=== PATIENT | male | born 1950 | race Caucasian/White ===

== ENCOUNTER 2022-11-15 07:57 | Outpatient (REF) | payer MEDICARE, BC, SELFPAY | END 2022-11-15 07:58 | disposition home or self-care (01) | LOC: HO.BBR 07:57 | PROVIDERS: PCP Internal Medicine; Visit Provider Internal Medicine | DX: D75.1 Secondary polycythemia (principal) | CPT/HCPCS: 85014; 85018; 99195 ==

== ENCOUNTER 2023-01-16 07:46 | Outpatient (REF) | payer MEDICARE, BC, SELFPAY | END 2023-01-16 07:47 | disposition home or self-care (01) | LOC: HO.BBR 07:46 | PROVIDERS: Visit Provider Internal Medicine | DX: D75.1 Secondary polycythemia (principal) | CPT/HCPCS: 85018; 99195 ==

== ENCOUNTER 2023-03-19 07:56 | Outpatient (REF) | payer MEDICARE, BC, SELFPAY | END 2023-03-19 07:57 | disposition home or self-care (01) | LOC: HO.BBR 07:56 | PROVIDERS: Visit Provider Internal Medicine | DX: D75.1 Secondary polycythemia (principal) | CPT/HCPCS: 85018; 99195 ==

== ENCOUNTER 2023-05-20 08:02 | Outpatient (REF) | payer MEDICARE, BC, SELFPAY | END 2023-05-20 08:03 | disposition home or self-care (01) | LOC: HO.BBR 08:02 | PROVIDERS: PCP Internal Medicine; Visit Provider Internal Medicine | DX: D75.1 Secondary polycythemia (principal) | CPT/HCPCS: 85014; 85018; 99195 ==

== ENCOUNTER 2023-07-22 08:06 | Outpatient (REF) | payer MEDICARE, BC, SELFPAY | END 2023-07-22 08:07 | disposition home or self-care (01) | LOC: HO.BBR 08:06 | PROVIDERS: PCP Internal Medicine; Visit Provider Internal Medicine | DX: D75.1 Secondary polycythemia (principal) | CPT/HCPCS: 85018; 99195 ==

== ENCOUNTER 2023-09-23 08:09 | Outpatient (REF) | payer MEDICARE, BC, SELFPAY | END 2023-09-23 08:10 | disposition home or self-care (01) | LOC: HO.BBR 08:09 | PROVIDERS: PCP Internal Medicine; Visit Provider Internal Medicine | DX: D75.1 Secondary polycythemia (principal) | CPT/HCPCS: 85018; 99195 ==

== ENCOUNTER 2023-11-25 08:49 | Outpatient (REF) | payer MEDICARE, BC, SELFPAY | END 2023-11-25 08:50 | disposition home or self-care (01) | LOC: HO.BBR 08:49 | PROVIDERS: PCP Internal Medicine; Visit Provider Internal Medicine | DX: D45 Polycythemia vera (principal) | CPT/HCPCS: 85014; 85018; 99195 ==

== ENCOUNTER 2024-02-25 08:01 | Outpatient (REF) | payer MEDICARE, BC, SELFPAY | END 2024-02-25 08:02 | disposition home or self-care (01) | LOC: HO.BBR 08:01 | PROVIDERS: PCP Internal Medicine; Visit Provider Internal Medicine | DX: D45 Polycythemia vera (principal) | CPT/HCPCS: 85018; 99195 ==

== ENCOUNTER 2024-05-27 08:10 | Outpatient (REF) | payer MEDICARE, BC, SELFPAY | END 2024-05-27 08:11 | disposition home or self-care (01) | LOC: HO.BBR 08:10 | PROVIDERS: PCP Internal Medicine; Visit Provider Internal Medicine | DX: D45 Polycythemia vera (principal) | CPT/HCPCS: 85014; 85018; 99195 ==

== ENCOUNTER 2024-09-03 08:06 | Outpatient (REF) | payer MEDICARE, BC, SELFPAY ==
--- OUTSIDE RECORDS SUMMARY | 2024-09-03 08:12 | XMS_ITS | Encounter Summary ---
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) Procedures US Head Neck Soft Tissue Madelyn Bledsoe PA [address] [place] [address] Phone: tel: fax: [facility] Referral ID Status Reason Start Date Expiration Date V isits Requested Visits Authorized [id number] Authorized 08/11/2024 08/11/2025 1 1 Reason for Visit * Reason Comments Diabetes Encounter Details Date Type Department Care Team (Late st Contact Info) Description 08/11/2024 9:45 AM EST Office Visit Endocrinology - [address] [phone] Maedlyn Bledsoe PA [address] [place] [address] 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) (Primary Dx); Essential hypertension, benign; Morbid obesity (CMS/HCC); Microalbuminuria; Thyroid nodule Social History Tobacco Use Types Packs/Day Years Used Date Smoking Tobacco: Former Cigarettes 1 38.7 0 07/15/1969 - 04/12/2008 Smokeless Tobacco: Never Tobacco Cessation:Counseling Given: Not Answered Alcohol Use Standard Drinks/Week Comments Yes 0 (1 standard drink = 0.6 oz pur e alcohol) Sex and Gender Information Value Date Recorded Sex Assigned at Not on file Legal Sex Male 6:24 PM EST Gender Identity Not on file Sexual Orientation Not on file documented as of this encounter Last Filed Vital Signs Vital Sign Reading Time Taken Comments Blood Pressure 112/64 08/11/2024 9:48 AM EST C Pulse 68 08/11/2024 9:48 AM EST Temperature 36.2 ??C (97.2 ??F) 08/11/2024 9:48 AM ES T Respiratory Rate - - Oxygen Saturation 93% 08/11/2024 9:48 AM EST Inhaled Oxygen Concentration - - Weight 119 kg (262 lb 6.4 oz) 08/11/2024 9:48 AM EST Height 180.3 cm (5' 11 ) 08/11/2024 9:48 AM EST Body Mass Index 36.6 08/11/2024 9:48 AM EST documented in this encounter Progress Notes * Regina Pennington MA - 08/11/2024 9:45 AM EST BS - 117 - Non Fasting * SABINO Dawkins - 08/11/2024 9:45 AM EST CHIEF COMPLAINT: Diabetes IDENTIFIER: Elton Carlisle is a 74 y.o. old male. HPI: Patient presents for follow-up on diabetes and thyroid disease. Past medical history of type 2 diabetes, thyroid nodules, peripheral artery disease, PTSD, obstructive of sleep apnea, morbid obesity, fatty liver disease, hypertension, coronary artery disease, congestive heart failure, carotic stenosis, cardiomyopathy, and anxiety. Thyroid nodules: Patient with history of multinodular goiter. Biopsy was done of the left nodules Left upper pole biopsy was nondiagnostic Left midpole biopsy was atypia of undetermined significance. Molecular testing done for that noduleand it showed low risk of malignancy. Only had follow-up ultrasound. See below for report. Nodules are stable. He did have a new nodule small on the right mid lobe. Continuing surveillance recommended No family history of thyroid cancer and he denies excessive exposure to radiation. No issues swallowing, changes in voice, chronic cough, or thyroid enlargement Diabetes: Lab Results Component Value Date HGBA1C 6.0 02/06/2024 Using robbie CGM Average glucose 139 GMI 6.6 Time in range 93% Time above 180 is 7% Diabetes medication: Jardiance 10 mg Humalog 18 units 3 times a day Actos 30 mg Ozempic 1 mg Metformin at 1000 mg twice a day Basaglar 50 units twice a day He does have an outside buying agent. Up-to-date with foot exam. Follows up with Dr. Cotton He does follow-up with vascular specialist. Dr. Malena Tian. Of note patient did have right leg surgery. Had angioplasty. Print Line Operator Dr. Purdy. Surgeon Dr. Frias. Up-to-date with eye exam. States he goes to [facility] Diabetes complicated by microalbuminuria. He is on VI inhibitor Blood sugar in the office 117 Hyperlipidemia: For cholesterol control takes Lipitor 40. LDL normal. Hypertension: Blood pressure 112/64 For blood pressure control on Lasix 40 mg, Entresto 49/51 mg twice a day, spironolactone 50 mg, andcarvedilol 25 mg twice a day. Obesity: Wt Readings from Last 3 Encounters: 08/11/24 119 kg (262 lb 6.4 oz) 07/31/24 118 kg (261 lb) 04/30/24 120 kg (265 lb) ROS: GENERAL: No malaise, significant weight loss or fever HEENT: No changes in hearing or vision, nose bleeds or other nasal problems RESPIRATORY: No cough, wheezing or shortness of breath CARDIOVASCULAR: No chest pain, leg swelling or palpitations GI: No abdominal discomfort, blood in stools or black stools ENDOCRINE: See HPI MUSCULOSKELETAL: No joint pain or swelling, back pain, or muscle pain. NEURO: No persistent headache, syncope, seizures, weakness or numbness PAST MEDICAL HISTORY: Patient Active Problem List Diagnosis Date Noted Abnormal thyroid biopsy 02/11/2023 Polycythemia vera (CMS/HCC) 11/07/2022 Carotid disease, bilateral ([facility]/HCC) 04/04/2018 CHB (complete heart block) ([facility]) 04/04/2018 Aortic valve replaced 03/06/2018 S/P biventricular cardiac pacemaker procedure 03/06/2018 Carotid stenosis, asymptomatic, bilateral 01/09/2018 Blepharitis of upper and lower eyelids of both eyes 09/17/2017 Paving stone degeneration of both retinas 09/17/2017 Coronary artery disease 04/25/2016 Calculus of gallbladder without cholecystitis without obstruction 11/20/2015 Fatty liver 11/20/2015 Liver nodule 11/09/2015 Lung nodules 11/09/2015 Thyroid nodule 11/09/2015 Microalbuminuria 10/11/2014 Type 2 diabetes mellitus with microalbuminuria ([facility]) 10/11/2014 Obstructive sleep apnea 08/11/2013 Aortic root dilation ([facility]) 03/04/2013 PTSD (post-traumatic stress disorder) 12/03/2012 Cardiomyopathy ([facility]) 01/23/2011 Adjustment disorder with mixed anxiety and depressed mood 01/05/2011 ARMD (age related macular degeneration) 11/11/2008 Chorioretinal scar 11/11/2008 Nuclear sclerosis 11/11/2008 Pure hyperglyceridemia 02/28/2007 Congestive heart failure ([facility]) 03/07/2006 Anxiety state 01/11/2006 Edema 01/11/2006 Allergic rhinitis 11/07/2005 Cramp of limb 11/07/2005 Essential hypertension, benign 11/07/2005 Morbid obesity ([facility]) 11/07/2005 PVD (peripheral vascular disease) ([facility]) 11/07/2005 SOCIAL HISTORY: Social History Tobacco Use Smoking status: Former Current packs/day: 0.00 Average packs/day: 1 pack/day for 38.7 years (38.7 ttl pk-yrs) Types: Cigarettes Start date: 07/15/1969 Quit date: 04/12/2008 Years since quittin.3 Smokeless tobacco: Never Substance Use Topics Alcohol use: Yes FAMILY HISTORY: Family Status Relation Name Status Neg Hx (Not Specified) Father Mother Brother Alive Sister Alive No partnership data on file Family History Problem Relation Name Age of Onset Cancer Neg Hx Anemia Neg Hx Hyperlipidemia Father Coronary artery disease Father Hypertension Mother Stroke Mother Diabetes Brother Hypertension Sister Blindness Neg Hx Cataracts Neg Hx Glaucoma Neg Hx Macular degeneration Neg Hx Strabismus Neg Hx ACTIVE MEDICATIONS: Outpatient Medications Marked as Taking for the 08/11/24 encounter (Office Visit) with SABINO Dawkins Medication Sig Dispense Refill apixaban (ELIQUIS) 5 mg tablet Take 1 tablet (5 mg total) by mouth 2 (two) times a day. 180 tablet 1 atorvastatin (LIPITOR) 40 mg tablet Take 1 tablet (40 mg total) by mouth 1 (one) time each day. blood-glucose sensor (FreeStyle Robbie 3 Sensor) device USE 1 SENSOR EVERY 14 DAYS 2 each 11 carvediloL (COREG) 25 mg tablet TAKE 1 TABLET BY MOUTH TWICE DAILY WITH MEALS 180 tablet 1 clonazePAM (KlonoPIN) 0.5 mg tablet Take 1 tablet (0.5 mg total) by mouth. DULoxetine (CYMBALTA) [address] capsule Take 1 capsule (60 mg total) by mouth daily. empagliflozin (Jardiance) 10 mg tablet Take 1 tablet (10 mg total) by mouth 1 (one) time each day. flash glucose sensor (FreeStyle Robbie 2 Sensor) kit Change sensor every 14 days 2 each 11 furosemide (LASIX) 40 mg tablet TAKE 1 TABLET BY MOUTH DAILY 90 tablet 1 gabapentin (NEURONTIN) 100 mg capsule Take 1 capsule (100 mg total) by mouth 3 (three) times a day.270 capsule 0 insulin glargine,hum.rec.anlog (Basaglar KwikPen U-100 Insulin) 100 unit/mL (3 mL) injection pen Inject 50 Units under the skin at bedtime. insulin lispro 100 unit/mL injection Inject 18 Units under the skin 3 (three) times a day before meals. metFORMIN (GLUCOPHAGE) 500 mg tablet Take 2 tablets (1,000 mg total) by mouth 2 (two) times a day with meals. pioglitazone (ACTOS) 30 mg tablet TAKE 1 TABLET BY MOUTH DAILY 90 tablet 1 sacubitriL-valsartan (ENTRESTO) 49-51 mg per tablet Take 1 tablet by mouth 2 (two) times a day. 180each 2 semaglutide (Ozempic) 1 mg/dose (4 mg/3 mL) injection pen Inject 1 mg under the skin 1 (one) time per week. spironolactone (ALDACTONE) 50 mg tablet TAKE 1 TABLET BY MOUTH DAILY 90 tablet 1 ALLERGIES: Banana PHYSICAL EXAM: Blood pressure 112/64, pulse 68, temperature 36.2 ??C (97.2 ??F), temperature source Temporal, height 1.803 m (71 ), weight 119 kg (262 lb 6.4 oz), SpO2 93%. Body mass index is 36.6 kg/m??. BMI is greater than 25.0 (above the normal range) - see Plan APPEARANCE: Alert and in no acute distress HEART: RRR with normal S1 and S2, no murmurs, no gallops, NECK: no thyroid enlargement, nodules or masses felt. LUNG: clear to auscultation NEURO: Awake, alert and oriented x 3 LABS: Lab Results Component Value Date HGBA1C 6.0 02/06/2024 CHOL 103 12/16/2023 LDL 42 12/16/2023 HDL 40 12/16/2023 TRIG 108 12/16/2023 Lab Results Component Value Date GLUCOSE 149 (H) 07/31/2024 No results found for: TSH IMAGING: Narrative & Impression History: Thyroid nodules. Follow-up. Thyroid ultrasound: Compared to 12/26/2023. The thyroid remains diffusely somewhat heterogeneous. The left lobe of thyroid remains substantially enlarged measuring 7.4 x 3.7 x 4.7 cm. The right lobe remains at the upper limit of normal measuring 4.7 x 1.7 x 2.3 cm. There is a hypoechoic nodule in the left aspect of the isthmus measuring 9 x 9 x 9 mm, not significantly changed. There is a poorly defined right mid lobe nodule measuring 12 x 11 x 10 mm not seen previously. A right lower pole nodule seen previously is no longer visualized. A left upper pole predominantly cystic nodule measures 12x 11 x 9 mm, not significantly changed. There is a dominant nodule at the left mid to lower pole with cystic and solid components measuring 6.0 x 3.7 x 4.6 cm. Previous dimensions were 5.5 x 3.6 x 4.9 cm. This does not represent a significant interval change. No additional nodules or masses are demonstrated. IMPRESSION: Previously identified nodules are stable. New small right mid lobe nodule. Continued sonographic follow-up is recommended. -------- FINAL REPORT -------- Dictated By: Jersey Reyes Dictated Date: 06/25/2024 11:27 ET Assigned Physician: Jersey Reyes Reviewed and Electronically Signed By: Jersey Reyes Signed Date: 06/25/2024 11:35 ET Workstation ID: [id number] Transcribed By: Self Edit Transcribed Date: 06/25/2024 11:27 ET IMPRESSION: 1. 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 Essential hypertension, benign 3. Morbid obesity (CMS/HCC) 4. Microalbuminuria 5. Thyroid nodule PLAN: Patient presents to the office for diabetes follow-up 1. Diabetes: A1c at goal. CGM data reviewed. Blood sugars doing well No hypoglycemia Labs ordered Continue with current regimen Follow-up in 6 months 2. Hypertension: Blood pressure at goal. Continue with blood pressure lowering medication 3. Morbid obesity: Continue to focus on lower intake of foods high in carbs and sugar 4. Microalbuminuria: Labs ordered 5. Thyroid nodule: Most recent ultrasound reviewed with the patient. Ultrasound for a year ordered All questions and concerns were addressed. Patient understands and agrees with this treatment plan.Patient was reminded to call or return to the office if any new or existing problems arise This document was made using voice recognition software. 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) (Primary) - Hemoglobin A1c; Future - Lipid panel with reflex to direct LDL; Future - Microalbumin creatinine urine ratio; Future - US Head Neck Soft Tissue; Future Essential hypertension, benign Morbid obesity (CMS/HCC) Microalbuminuria Thyroid nodule SABINO Dawkins on 08/11/2024 at 10:32 AM EST documented in this encounter Plan of Treatment Upcoming Encounters Date Type Department Care Team (Late st Contact Info) Description 09/30/2024 10:30 AM EDT Ancillary Procedure [facility] [address] [facility] [address] [place] [address] 10/14/2024 9:00 AM EDT Office Visit Internal Medicine - [address] [phone] Farooq Alvarado MD [address] [place] [phone] 02/09/2025 10:00 AM EDT Office Visit Endocrinology - [address] [phone] Madelyn Bledsoe PA [address] [place] [address] 03/16/2025 9:30 AM EDT Ancillary Procedure [facility] - [facility] [address] [facility] [address] [place] [address] 06/16/2025 10:45 AM EST Office Visit [facility] Hematology Oncology [address] [place] [phone] Caren Judge MD [address] [place] [address] Scheduled Orders Name Type Priority Associated Diagnoses Orde r Schedule US Head Neck Soft Tissue Imaging Routine Type 2 diabetes mellitus with microalbuminuria ([facility]/HCC) Expected: 07/13/2025, Expires: 08/03/2026 documented as of this encounter Results * (ABNORMAL) Microalbumin creatinine urine ratio (08/11/2024 10:53 AM EST) Creatinine, Urine 25.0 mg/dL LAB CHEMISTRY METHOD 08/11/2024 1:22 PM EST [facility] Microalb, Ur 323.0(H) 0.0 - 29.0 mg/L LAB CHEMISTRY METHOD 08/11/2024 1:22 PM EST [facility] Microalb/Crea t Ratio 1,292(H) <30 mg/g creat LAB CHEMISTRY METHOD 08/11/2024 1:22 PM EST [facility] Urine Urine specimen from urethra / Unknown Non-blood Collection / Unknown 08/11/2024 10:53 AM EST 08/11/2024 10:53 AM EST us Madelyn GALLO LAB URINE ORDERABLES Final Result [facility] [address] [place] [address], [place] [phone] * (ABNORMAL) Lipid panel with reflex to direct LDL (08/11/2024 10:53 AM EST) Cholesterol 95 0 - 200 mg/dL LAB CHEMISTRY METHOD 08/11/2024 4:14 PM [facility] Triglycerides 157(H) 0 - 150 mg/dL LAB CHEMISTRY METHOD 08/11/2024 4:14 PM [facility] HDL 36(L) >=40 mg/dL LAB CHEMISTRY METHOD 08/11/2024 4:14 PM [facility] LDL Calculated 28 0 - 100 mg/dL LAB CHEMISTRY METHOD 08/11/2024 4:14 PM [facility] VLDL Cholesterol Lenny 31.4 mg/dL LAB CHEMISTRY METHOD 08/11/2024 4:14 PM [facility] Non HDL Chol. (LDL+VLDL) 59 <145 mg/dL LAB CHEMISTRY METHOD 08/11/2024 4:14 PM [facility] Chol/HDL Ratio 2.6 0.0 - 4.4 LAB CHEMISTRY METHOD 08/11/2024 4:14 PM [facility] Blood Venous blood specimen / Unknown Venipuncture / Unknown 08/11/2024 10:53 AM EST 08/11/2024 10:53 AM EST us Madelyn GALLO LAB BLOOD ORDERABLES Final Result [facility] [address] [place] [address], * Hemoglobin A1c (08/11/2024 10:53 AM EST) Hemoglobin A1C 6.2 <6.5 % LAB CHEMISTRY METHOD 08/11/2024 1:59 PM [facility] Mean Bld Glu Estim. 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 Duplicate order 12/16/2023 08/11/2024 pioglitazone (ACTOS) 30 mg tablet Take 1 tablet (30 mg total) by mouth 1 (one) time each day. Duplicate order 12/17/2018 08/11/2024 documented as of this encounter Care Teams Director Global Strategic Publisher Sales Relationship Specialty Start Date End Date Farooq Alvarado MD [address] [place] [id number] PCP - General Internal Medicine 04/11/15 documented as of this encounter
--- OUTSIDE RECORDS SUMMARY | 2024-09-03 08:12 | XMS_ITS | Continuity of Care Document ---
Author Organization [facility] ter Address [address] [place] [id number]- Care Team Providers Care Handkerchief Presser Name Role Phone Christiano LUIS, Farooq Cortes Primary Care Physician Encounter [facility] Date(s): 08/25/24 - 08/28/[address] [address] Discharge Disposition: A-D/C Home Attending Physician: Miguel Chun MD Admitting Physician: Larry Eric MD Referring Physician: Not on Staff, Referring MD Encounter Type: Disch IP Allergies, Adverse Reactions, Alerts No Known Medication Allergies Substance Criticality Severity Reaction Reaction Severity Status Bananas Hives Active Immunizations Given and Recorded Vaccine Date Status Refusal Reason SARS-CoV-2 (COVID-19) Ad26 vaccine 07/04/21 Record ed SARS-CoV-2 (COVID-19) Ad26 vaccine 10/21/20 Record ed influenza virus vaccine, inactivated 05/22/19 Curtis rded tetanus-diphtheria toxoids (Td) 08/12/18 Recorded pneumococcal 13-valent vaccine 03/12/17 Recorded Zoster Vaccine Live 12/27/15 Recorded pneumococcal 23-valent vaccine 01/05/14 Recorded tetanus/diphtheria/pertussis, acel(Tdap) 12/25/07 Recorded Medications Albuterol (Eqv-ProAir HFA) 90 mcg/inh inhalation aerosol 1 inhalation = 90 mcg, Inhalation, Every 4 hours, PRN as needed for shortness of breath or wheezing, # 8.5 Gm, 0 Refills, Maintenance, 2/14/25 9:48:00 AM EST, Aerosol, [facility] #[id number], Partial fill upon patient request if the prescription is for a schedule II opioid drug., 1 inhalation Inhalation Every 4 hours,x30 days,PRN:as needed for shortness of breath or wheezing, 180, cm, 08/27/24 4:12:00 EST, Height, 117, kg, 08/25/24 19:09:00 EST, Dry Weight Start Date: 08/28/24 Stop Date: 09/27/24 Status: Ordered Quantity: 8.5 Unit: g Repeat number: 1 apixaban 5 mg oral tablet 1 tablet = 5 mg, By Mouth, 2 times a day, # 60 tablet, 0 Refills, Maintenance, 08/28/24 9:45:00 AM EST, Tablet, [facility] #[id number], Partial fill upon patient request if the prescription is for a schedule II opioid drug., 180, cm, 08/27/24 4:12:00 EST, Height, 117, kg, 08/25/24 19:09:00 EST,Dry Weight Start Date: 08/28/24 Stop Date: 09/27/24 Status: Ordered Quantity: 60.0 Unit: tablet Repeat number: 1 aspirin 81 mg oral delayed release tablet 81 mg, 1, tablet, By Mouth, Daily, # 30 tablet, Refills 0, Tot. Refills 0, Maintenance, 01/03/24 9:18:00 AM EDT, Route to Pharmacy Electronically, [facility]/pharmacy #[id number], Partial fill upon patient requestif the prescription is for a schedule II opioid drug., 180.34, cm, 01/03/24 7:38:00 EDT, Height, 120.2, kg, 01/02/24 9:20:00 EDT, Dry Weight Start Date: 01/03/24 Status: Ordered Quantity: 30.0 Unit: tablet Repeat number: 1 atorvastatin 40 mg oral tablet 1 tablet = 40 mg, By Mouth, Daily at bedtime, # 30 tablet, 0 Refills, Maintenance, Tablet, Print Requisition Start Date: 02/22/18 Status: Ordered Quantity: 30.0 Unit: tablet Repeat number: 1 carvedilol 25 mg oral tablet 25 mg, Tablet, By Mouth, 08/28/24 9:00:00 AM EST Start Date: 08/28/24 Stop Date: 08/28/24 Status: Completed Repeat number: 1 carvedilol 25 mg oral tablet 25 mg, 1, tablet, By Mouth, 2 times a day, 180 each, 0 Refill(s), TAKE 1 TABLET BY MOUTH TWICE DAILY WITH MEALS, Refills 0, 07/13/24 1:51:00 PM EST, Partial fill upon patient request if the prescription is for a schedule II opioid drug. Start Date: 07/13/24 Status: Ordered Repeat number: 1 cefpodoxime 200 mg oral tablet 1 tablet = 200 mg, By Mouth, Every 12 hours, for 3 days, # 6 tablet, 0 Refills, Acute 08/31/24 9:53:00 AM EST, 08/28/24 9:53:00 AM EST, Tablet, [facility] #[id number], Partial fill upon patient request if the prescription is for a schedule II opioid drug., 180, cm, 08/27/24 4:12:00 EST, Height, 117, kg, 08/25/24 19:09:00 EST, Dry Weight Start Date: 08/28/24 Stop Date: 08/31/24 Status: Ordered Quantity: 6.0 Unit: tablet Repeat number: 1 clonazePAM 0.5 mg oral tablet 1 tablet = 0.5 mg, By Mouth, 3 times a day, PRN Anxiety, 0.25 mg during the day and 0.5 mg at bedtime, (total 0.5 tid), 0 Refills, Maintenance, 06/15/20 6:59:00 PM EST, Tablet, Partial fill upon patient request if the prescription is for a schedule II opioid drug. Start Date: 06/15/20 Status: Ordered Repeat number: 1 Cymbalta 30 mg oral enteric coated capsule 1 capsule = 30 mg, By Mouth, Daily in AM, do not crush or chew, 0 Refills, Maintenance, 12/04/21 7:56:00 PM EDT, CR Capsule, Partial fill upon patient request if the prescription is for a schedule II opioid drug. Start Date: 12/04/21 Status: Ordered Repeat number: 1 doxycycline hyclate 100 mg oral capsule = 100 mg, By Mouth, Every 12 hours, for 3 days, # 6 capsule, 0 Refills, Acute 08/31/24 9:46:00 AM EST, 08/28/24 9:46:00 AM EST, Capsule, [facility] #[id number], Partial fill upon patient request if the prescription is for a schedule II opioid drug., 180, cm, 08/27/24 4:12:00 EST, Height, 117, kg, 08/25/24 19:09:00 EST, Dry Weight Start Date: 08/28/24 Stop Date: 08/31/24 Status: Ordered Quantity: 6.0 Unit: capsule Repeat number: 1 Entresto 49 mg-51 mg oral tablet 1 tablet, By Mouth, 2 times a day, # 60 tablet, 0 Refills, Maintenance, 08/26/19 9:32:00 AM EST, Tablet Start Date: 08/26/19 Status: Ordered Quantity: 60.0 Unit: tablet Repeat number: 1 furosemide 40 mg oral tablet 40 mg, 1, tablet, By Mouth, Daily in AM, # 30 tablet, Refills 0, Tot. Refills 0, Maintenance, 08/28/24 9:45:00 AM EST, Route to Pharmacy Electronically, [facility] #[id number], Partial fill upon patient request if the prescription is for a schedule II opioid drug., 180, cm, 08/27/24 4:12:00 EST, Height, 117, kg, 08/25/24 19:09:00 EST, Dry Weight Start Date: 08/28/24 Status: Ordered Quantity: 30.0 Unit: tablet Repeat number: 1 gabapentin 100 mg oral capsule 100 mg, Capsule, By Mouth, 08/28/24 9:00:00 AM EST Start Date: 08/28/24 Stop Date: 08/28/24 Status: Completed Repeat number: 1 gabapentin 100 mg oral capsule 100 mg, 1, capsule, By Mouth, 3 times a day, 270 each, 0 Refill(s), Refills 0, 07/13/24 1:51:00 PM EST, Partial fill upon patient request if the prescription is for a schedule II opioid drug. Start Date: 07/13/24 Status: Ordered Repeat number: 1 Insulin Lispro 2-10 units, Subcutaneous Injection, 3 times a day before meals, sliding scale [id number]: 2 units, 200-249; 4 unints, 250-299; 6 units, 300-349: 8 units, 350- 399: 10 units, call MD if more than 400.,0 Refills, Maintenance, 08/28/24 9:48:00 AM EST, Injection, Partial fill upon patient request if theprescription is for a schedule II opioid drug. Start Date: 08/28/24 Status: Ordered Repeat number: 1 Jardiance 10 mg oral tablet 1 tablet = 10 mg, By Mouth, Daily in AM, 0 Refills, Maintenance, 01/10/21 11:24:00 AM EDT, Partial fill upon patient request if the prescription is for a schedule II opioid drug. Start Date: 01/10/21 Status: Ordered Repeat number: 1 Lantus Inj = 100 units, Subcutaneous Injection, Daily at bedtime, 0 Refills, Maintenance, 04/04/17 9:21:43 AM EDT Start Date: 04/04/17 Status: Ordered Repeat number: 1 metFORMIN 500 mg oral tablet, extended release 2 tablet = 1,000 mg, By Mouth, 2 times a day, 0 Refills, Maintenance, 09/16/18 8:52:24 AM EST Start Date: 09/16/18 Status: Ordered Repeat number: 1 Ozempic (1 mg dose) 4 mg/3 mL subcutaneous solution = 1 mg, Subcutaneous Injection, Every week, 3 mL, 0 Refill(s), INJECT 1MG SUBCUTANEOUSLY EVERY 7 DAYS, 0 Refills, 07/13/24 1:51:00 PM EST, Partial fill upon patient request if the prescription is fora schedule II opioid drug. Start Date: 07/13/24 Status: Ordered Repeat number: 1 pioglitazone 30 mg oral tablet 1 tablet = 30 mg, By Mouth, Daily at bedtime, # 30 tablet, 0 Refills, Maintenance, 12/17/18 3:12:10 PM EDT, Tablet Start Date: 12/17/18 Status: Ordered Quantity: 30.0 Unit: tablet Repeat number: 1 spironolactone 50 mg oral tablet 1 tablet = 50 mg, By Mouth, Daily in AM, # 180 tablet, 0 Refills, Maintenance, 05/28/13 4:35:44 PM EST, Tablet Start Date: 05/28/13 Status: Ordered Quantity: 180.0 Unit: tablet Repeat number: 1 Trilipix 135 mg oral delayed release capsule 1 capsule = 135 mg, By Mouth, Daily in AM, # 30 capsule, 0 Refills, Maintenance, 05/28/13 4:36:27 PM EST, EC Capsule Start Date: 05/28/13 Status: Ordered Quantity: 30.0 Unit: capsule Repeat number: 1 Tylenol 325 mg oral tablet 650 mg, By Mouth, Every 6 hours, PRN, Refills 0, Maintenance, Pain , Moderate, 01/03/24 9:07:00 AM EDT, Partial fill upon patient request if the prescription is for a schedule II opioid drug. Start Date: 01/03/24 Status: Ordered Repeat number: 1 Problem List Condition Confirmation Course Effective Dates Status H ealth Status Informant Anxiety Confirmed Active (aortic stenosis) Confirmed Active Asymptomatic carotid artery stenosis Confirmed Active Obesity (BMI 36 as of 01/12/2019) Confirmed Active Biventricular Medtronic Solara Quad MINE EQUIPMENT DESIGN ENGINEER-P MRI SureScan model [id number] Confirmed 02/21/18 Active Cardiomyopathy Confirmed Active Carotid artery stenosis Confirmed Active CHF (congestive heart failure) Confirmed Active CAD (coronary artery disease) Confirmed Active Former smoker, 2 ppd X30 years, quit 2003 Confirmed Active History of complete heart block Confirmed Active Heart murmur Confirmed Active S/P AVR Confirmed Active Hx of CABG Confirmed Active Hyperlipidemia Confirmed Active HTN (hypertension) Confirmed Active Moderate Kyphoscoliosis Confirmed Active Neuropathy Confirmed Active YAKELIN (obstructive sleep apnea) Confirmed Active Osteomyelitis Confirmed Active PAD (peripheral artery disease) Confirmed Active PVD (peripheral vascular disease) Confirmed Active PTSD (post-traumatic stress disorder) Confirmed Active Severe obesity (BMI 35.0-39.9) with comorbidity Confirmed Active DM2 (diabetes mellitus, type 2), insulin Confirmed Active Noncompliance with CPAP treatment Confirmed Active Results Radiology Reports * Exam Date Time Procedure Performing Provider Status 08/25/24 7:50 AM Chest Portable Shimon , Aliyah; Auth (V erified) Notes: (Chest Portable) Reason For Exam: Shortness of Breath RESULT: Chest Portable AP upright portable chest dated August 25, 2024 at 0741 hours. Comparison films are from September 24, 2019. HISTORY: Shortness of breath. FINDINGS: The cardiac silhouette is increased in size. A pacemaker/AICD is noted on the left. Thereare at least 4 wires extending to overlie the heart. A combination of reticulonodular infiltrates right greater than left is demonstrated. There is elevation of left hemidiaphragm. This is stable. The patient is status post median sternotomy. Degenerative changes are noted in the heart. IMPRESSION: Extensive changes bilaterally most consistent with multifocal pneumonia. Examination [id number]. Thank you for allowing me to participate in the care of this patient. WSN: [id number] Ordering Physician: Jabari Mike Dictated By: Samuel Thompson MD Dictated Date/Time: 08/25/24 8:28 am Reviewed By: Samuel Thompson MD Signed By: Samuel Thompson MD Signed Date/Time: 08/25/24 8:28 am Transcribed By: GIBSON Transcribed Date/Time: 08/25/24 8:28 am Vital Signs Most recent to oldest [Reference Range]: 1 2 3 Height 180 cm (08/27/24 4:12 AM) 180 cm (08/27/24 2:00 AM) 180 cm (08/26/24 7:58 PM) Weight 117 kg (08/25/24 5:40 PM) 120.5 kg (08/25/24 5:38 PM) 117 kg (08/25/24 3:26 PM) Oxygen Saturation [94-100 %] 93 % *L* (08/28/24 9:00 AM) 96 % (08/28/24 12:00 AM) 98 % (08/27/24 7:56 PM) Pulse Rate [55-90 bpm] 78 bpm (08/28/24 9:43 AM) 78 bpm (08/28/24 9:00 AM) 80 bpm (08/28/24 12:00 AM) Body Mass Index [18.5-24.99 kg/m2] 36.11 kg/m2 *>HHI* (08/25/24 5:40 PM) 36.11 kg/m2 *>HHI* (08/25/24 3:26 PM) 36.11 kg/m2 *>HHI* (08/25/24 12:54 PM) Blood Pressure [90-138/55-84 mm Hg] 123/53mm Hg (08/28/24 9:43 AM) 123/53mm Hg (08/28/24 9:00 AM) 132/56mm Hg (08/28/24 12:00 AM) Respiratory Rate [16-30 br/min] 20 br/min (08/28/24 9:43 AM) 20 br/min (08/28/24 9:00 AM) 18 br/min (08/28/24 12:00 AM) Temperature [96.8-100.4 DegF] 98.0 DegF (08/28/24 9:00 AM) 98.2 DegF (08/28/24 12:00 AM) 98.6 DegF (08/27/24 7:56 PM) Liters per Minute 6 L/min (08/26/24 8:00 AM) 6 L/min (08/26/24 6:00 AM) 6 L/min (08/26/24 4:00 AM) Mode of Delivery (Oxygen) Room air (08/28/24 12:00 AM) Room air (08/27/24 7:56 PM) Room air (08/27/24 1:00 PM) Blood pressure sites Arm, left (08/28/24 9:00 AM) Arm, left (08/28/24 12:00 AM) Arm, left (08/27/24 7:56 PM) Temperature Route Oral (08/28/24 9:00 AM) Oral (08/28/24 12:00 AM) Oral (08/27/24 7:56 PM) Dry Weight 117 kg (08/25/24 5:40 PM) 117 kg (08/25/24 3:26 PM) 117 kg (08/25/24 12:54 PM) Weight Obtained Via Bed scale (08/25/24 5:38 PM) Patient/family stated (08/25/24 7:17 AM) Dry Weight Obtained Via Patient/family s tated (08/25/24 7:17 AM) Social History Social History Type Response Smoking Status Former smoker; Tobac co user in household: No; Other: 2ppd x 30y; quit 2004; 1 entered on: 03/07/16 Sex Sex Representation Male (finding) 1quit 8 yrs ago Admission evaluation note * Reilly GALLO, Parminder Monique: PERFORM Event Display: Admission Note Authored Date: [id number] Patient: ??MIMI SPIVEY ? Age:??74 Years?Sex:??Male?:??1950?? History of Present Illness 74-year-old male with history of CAD s/p CABG in 2019, hypertension, dyslipidemia, diabetes mellitus type 2 on insulin, PAD s/p BLE bypasses, carotid artery disease s/p CEA, s/p AVR, chronic heartfailure unspecified EF who was sleeping and woke up this morning with increased wheezing.? He normally sleeps in a chair. ?? He presented to the ED where he was found to be profoundly hypoxic and was placed on BiPAP. bedsideUS showed bilateral pulmonary edema. CXR showed multifocal pneumonia. He was given antibiotics and diuretics and referred for admission. ?? Social history: history of tobacco use, quit 30 years ago. ?? HCP: Adriane Frey, his sister ?? Code status: Full code, confirmed. Review of Systems No chest pain, fevers, chills, nausea, vomiting or diarrhea. Objective Vital Signs?? Temperature: 98 DegF (08/25/24 07:52:00) Temperature Route: Oral (08/25/24 07:52:00) Pulse Rate: 87 bpm (08/25/24 09:35:00) Heart Rate Monitored: 85 bpm (08/25/24 08:30:00) Respiratory Rate: 19 br/min (08/25/24 09:35:00) Systolic Blood Pressure: 106 mm Hg (08/25/24 09:35:00) Diastolic Blood Pressure: 78 mm Hg (08/25/24 09:35:00) Blood pressure sites: Arm, left (08/25/24:35:00) Mean Arterial Pressure: 87 mm Hg (08/25/24 09:35:00) Pulse Pressure: 28 mm Hg (08/25/24 09:35:00) Oxygen Saturation: 98 % (08/25/24:35:00) Liters per Minute: 6 L/min (08/25/24 07:20:00) Mode of Delivery (Oxygen): CPAP (08/25/24 09:35:00) FiO2: 50 % (08/25/24 08:30:00) Early Warning Score: 3 (08/25/24 10:34:22) ? Intake/Output? No Data Available ? Physical Exam Temperature?98 ?(07:53) Systolic Blood Pressure?106 ?(09:36) Diastolic Blood Pressure?78 ?(09:36) Pulse?87 ?(09:36) SpO2?98 ?(09:36) Respiratory Rate?19 ?(09:36) ?? Constitutional: Alert, in no distress. Mental Status: Oriented to person, place and time. Respiratory: Basilar coarseness Cardiovascular: Regular rate and rhythm, no murmurs, rubs or gallops. Abdomen: Soft, non-tender, non-distended.??Normal bowel sounds. Skin: No rashes or lesions. Psychiatric: Normal mood and affect. Extremities: No edema. Assessment/Plan Assessment:??74-year-old male with history of CAD s/p CABG in 2019, hypertension, dyslipidemia, diabetes mellitus type 2 on insulin, PAD s/p BLE bypasses, carotid artery disease s/p CEA, s/p AVR, chronic heart failure unspecified EF who was sleeping and woke up this morning with increased wheezing and was found to have acute hypoxic respiratory failure secondary to multifocal pneumonia and possible acute on chronic CHF. ?? Acute respiratory failure with hypoxia (J96.01) Multifocal pneumonia (J18.9):? Continue ceftriaxone and doxycycline. Stable on acute rescue BiPAP. [place] off BiPAP with respiratory. Wean o2 as tolerated. Sputum and blood cultures. ?? CHF (congestive heart failure) (I50.9):? Unknown EF. Bilateral edema seen on US in ED, given diuretics. Continue Entresto, ASA, statin, carvedilol, lasix,??spironolactone.?? Check echocardiogram. ?? Dyslipidemia (E78.5):? Continue statin. ?? Hypertension (I10):? Continue carvedilol. ?? Diabetes mellitus type 2 in obese (E11.69):? Continue Lantus 100 units at HS. Continue Lispro 18 units TID AC when eating. Continue SSI. ?? Aortic valve replaced (Z95.2) Carotid artery disease (I77.9) PAD (peripheral artery disease) (I73.9) Coronary artery disease (I25.10):? S/p CABG, BLE bypasses, CEA. Continue Coreg, ASA, statin. ? Quality measures: ?? Code status:??Full code, confirmed Diet:??Cardiac when off BiPAP DVT prophylaxis:??apixaban ?? I spent a total of??100 minutes today reviewing the chart/medical records, speaking with the patient, formulating and discussing the treatment plan and documenting the findings and encounter. Discussed plan with patient, nursing,??and case management. ?? Parminder Grover, II SD-C [facility] Pager #[phone] or [facility]? Histories Allergies Allergies ?(Active and Proposed Allergies Only) Bananas? (Severity: Unknown severity, Onset: Unknown) ?Reactions: Hives No Known Medication Allergies? (Severity: Unknown severity, Onset: Unknown) ? Past Medical History/Problem List Active Problems(26) Anxiety (aortic stenosis) Asymptomatic carotid artery stenosis Biventricular Medtronic Solara Quad MINE EQUIPMENT DESIGN ENGINEER-P MRI SureScan model [id number] CAD (coronary artery disease) Cardiomyopathy Carotid artery stenosis CHF (congestive heart failure) DM2 (diabetes mellitus, type 2), insulin Former smoker, 2 ppd X30 years, quit 2003 Heart murmur History of complete heart block HTN (hypertension) Hx of CABG Hyperlipidemia Moderate Kyphoscoliosis Neuropathy Noncompliance with CPAP treatment Obesity (BMI 36 as of 01/12/2019) YAKELIN (obstructive sleep apnea) Osteomyelitis PAD (peripheral artery disease) PTSD (post-traumatic stress disorder) PVD (peripheral vascular disease) S/P AVR Severe obesity (BMI 35.0-39.9) with comorbidity ? Past Surgical History Debridement, right groin and right great toe amputation site: 12/05/21 Extensive right iliofemoral, profunda femoris artery & superficial femoral endarterectomy w/bovine pericardial patch angioplasty. Abdominal aortogram. Right leg angiogram. Endarterectomy of tibioperoneal trunk. Right lSFA to tibioperoneal trunk bypass: 11/14/21 Right great toe transmetatarsal amputation and excisional debridement skin subcutaneous tissue tendon and bone: 11/09/21 Right carotid endarterectomy with bovine pericardial patch angioplasty: 01/26/19 AVR w/25 mm Trifecta GT valve by [place]. CABG x3, GOODEN to LAD, SV graft to OM1 in RPDA is a sequential graft: 02/27/18 Biventricular Medtronic Solara Quad MINE EQUIPMENT DESIGN ENGINEER-P MRI SureScan model [id number]: 02/21/18 Cardiac catheterization: 11/05/17 Right third toe amputation: 05/07/14 Closed distal interphalangeal joint amputation R2 toe: 05/29/13 Colonoscopy: 05/06/13 Repair of left ring finger mallet deformity with a buried anchor screw and 0.035 K-wire.: 06/27/09 Right leg Bypass Arthroscopy of left knee ? Social History Alcohol Details:??Use: H/O ETOH abuse - quit 25 years. Details:??Use: Past. Employment/School Details:??Status: Retired. ??Other: worked for [employer].. Exercise Details:??Self assessment: Good condition. Nutrition/Health Details:??Other: Following a modified Mediterranean diet - low sodium, fat- selective, diabetic. RYPscore 57. Substance Abuse Details:??Use: Never. Tobacco Details:??Former smoker, Tobacco user in household: No. ??Other: 2ppd x 30y; quit 2003.;??Comment(s):??quit 8 yrs ago ? Family History Mother: Congestive heart failure; Stroke Father: Cardiomyopathy ?20-NOV-2014 22:24:19<$>; Congestive heart failure ? Medications Home Medications Acetaminophen (Tylenol 325 mg oral tablet)??650 Milligram By Mouth Every 6 hours as needed Pain , Moderate apixaban (apixaban 5 mg oral tablet)??1 tab(s) 5 Milligram By Mouth 2 times a day Aspirin (aspirin 81 mg oral delayed release tablet)??81 Milligram 1 tablet By Mouth Daily Atorvastatin (atorvastatin 40 mg oral tablet)??1 tab(s) 40 Milligram By Mouth Daily at bedtime Carvedilol (carvedilol 25 mg oral tablet)??25 Milligram 1 tablet By Mouth 2 times a day 180 each, 0Refill(s), TAKE 1 TABLET BY MOUTH TWICE DAILY WITH MEALS Clonazepam (clonazePAM 0.5 mg oral tablet)??1 tab(s) 0.5 Milligram By Mouth 3 times a day as neededAnxiety 0.25 mg during the day and 0.5 mg at bedtime, (total 0.5 tid) Duloxetine (Cymbalta 30 mg oral enteric coated capsule)??1 capsule 30 Milligram By Mouth Daily in AM do not crush or chew empagliflozin (Jardiance 10 mg oral tablet)??1 tab(s) 10 Milligram By Mouth Daily in AM fenofibric acid (Trilipix 135 mg oral delayed release capsule)??1 capsule 135 Milligram By Mouth Daily in AM Furosemide (furosemide 40 mg oral tablet)??40 Milligram 1 tablet By Mouth Daily in AM Gabapentin (gabapentin 100 mg oral capsule)??100 Milligram 1 capsule By Mouth 3 times a day 270 each, 0 Refill(s) Insulin Glargine (Lantus Inj)??100 unit(s) Subcutaneous Injection Daily at bedtime Insulin Lispro (insulin lispro 100 u/ml subcutaneous injection)??18 unit(s) Subcutaneous Injection 3 times a day before meals as needed Other if blood sugar is at least 130 Metformin (metFORMIN 500 mg oral tablet, extended release)??2 tab(s) 1,000 Milligram By Mouth 2 times a day Pioglitazone (pioglitazone 30 mg oral tablet)??1 tab(s) 30 Milligram By Mouth Daily at bedtime sacubitril-valsartan (Entresto 49 mg-51 mg oral tablet)??1 tab(s) By Mouth 2 times a day semaglutide (Ozempic (1 mg dose) 4 mg/3 mL subcutaneous solution)??1 Milligram Subcutaneous Injection Every week 3 mL, 0 Refill(s), INJECT 1MG SUBCUTANEOUSLY ??EVERY 7 DAYS Spironolactone (spironolactone 50 mg oral tablet)??1 tab(s) 50 Milligram By Mouth Daily in AM ? Inpatient Medications Medications (31) Active SCHEDULED: (18) Apixaban 5 mg Tablet (apixaban) ??5 mg, By Mouth, 2 times a day Aspirin 81 mg EC Tablet (aspirin 81 mg oral delayed release tablet) ??81 mg, By Mouth, Daily Atorvastatin 40 mg Tablet (atorvastatin 40 mg oral tablet) ??40 mg, By Mouth, Daily at bedtime Carvedilol 25 mg Tablet (carvedilol 25 mg oral tablet) ??25 mg, By Mouth, 2 times a day Ceftriaxone 1 Gm Inj (Ceftriaxone Inj) ??1 Gm, IVPB, Every 24 hours Dapagliflozin 10 mg Tablet (Dapagliflozin Tablet) ??10 mg, By Mouth, Daily Doxycycline 100 mg Tablet (Doxycycline Tablet) ??100 mg, By Mouth, Every 12 hours Duloxetine 30 mg Capsule (DULoxetine Capsule) ??30 mg, By Mouth, Daily in AM Furosemide 40 mg Tablet (furosemide 40 mg oral tablet) ??40 mg, By Mouth, Daily in AM Gabapentin 100 mg Capsule (gabapentin 100 mg oral capsule) ??100 mg, By Mouth, 3 times a day Insulin Glargine 100 units/mL Inj (Lantus Inj) ??100 units 1 mL, Subcutaneous Injection, Daily at bedtime Insulin Lispro 100 units/mL Inj (Insulin LISPRO Sliding Scale) ??2-10 units, Subcutaneous Injection, 3 times a day before meals Insulin Lispro 100 units/mL Inj (Insulin LISPRO Inj) ??18 units 0.18 mL, Subcutaneous Injection, 3 times a day before meals MetFORMIN 500 mg ER Tablet (metFORMIN 500 mg oral tablet, extended release) ??1,000 mg, By Mouth, 2times a day NaCl 0.9% Flush 3ml (NaCL 0.9% Flush) ??3 mL, IV Push, Every 8 hours Pioglitazone 15 mg Tablet (pioglitazone 15 mg oral tablet) ??30 mg, By Mouth, Daily at bedtime Sacubitril-Valsartan 49 mg-51 mg Tablet (Entresto 49 mg-51 mg oral tablet) ??1 tablet, By Mouth, 2 times a day Spironolactone 25 mg Tablet (spironolactone 25 mg oral tablet) ??50 mg, By Mouth, Daily in AM CONTINUOUS: (0) PRN: (13) Acetaminophen 325 mg Tablet (Acetaminophen Tablet) ??650 mg, By Mouth, Every 4 hours Clonazepam 0.5 mg Tablet (clonazePAM 0.5 mg oral tablet) ??0.5 mg, By Mouth, 3 times a day Dextromethorphan-Guaifenesin 20 mg-200 mg/10 mL Liqu UD (Robitussin DM Liquid) ??10 mL, By Mouth, Every 4 hours Dextrose Inj Syringe (Dextrose 50% Inj Syringe (25Gm)) ??12.5 Gm, IV Push Slowly, Every 20 minutes Dextrose Inj Syringe (Dextrose 50% Inj Syringe (25Gm)) ??25 Gm, IV Push Slowly, Every 15 minutes Docusate Sodium 100 mg Capsule (Docusate Sodium Capsule) ??100 mg 1 capsule, By Mouth, 2 times a day Glucagon 1 mg Inj (Glucagon Inj) ??1 mg, Intramuscular, Once Glucose 40% Gel (15 Gm) (Glucose Gel) ??15 Gm, By Mouth, Every 20 minutes Glucose 40% Gel (15 Gm) (Glucose Gel) ??30 Gm, By Mouth, Every 20 minutes Melatonin 3 mg Tablet (Melatonin Tablet) ??3 mg, By Mouth, Daily at bedtime NaCl 0.9% Flush 3ml (NaCL 0.9% Flush) ??3 mL, IV Push, Every 8 hours Polyethylene Glycol 17 Gm Powder (MiraLax Powder) ??17 Gm 1 pack/packet, By Mouth, Daily Senna Tablet ??8.6 mg 1 tablet, By Mouth, 2 times a day ? Results Recent Labs BLOOD COUNT & DIFF WBC 20.3 k/mm3 (High)?? 08/25/2024 07:36 RBC 6.91 m/mm3 (High)?? 08/25/2024 07:36 Hgb 18.7 Gm/dL (High)?? 08/25/2024 07:36 Hct 58.6 % (High)?? 08/25/2024 07:36 MCV 84.8 femtoliters ()?? 08/25/2024 07:36 MCH 27.1 pg ()?? 08/25/2024 07:36 MCHC 31.9 Gm/dL (Low)?? 08/25/2024 07:36 Platelet Count 834 k/mm3 (High)?? 08/25/2024 07:36 RDW-SD 49.5 femtoliters (High)?? 08/25/2024 07:36 MPV 10.9 femtoliters ()?? 08/25/2024 07:36 Nucleated RBC (Automated) 0.0 #/100 WBC'S ()?? 08/25/2024 07:36 Abs. NRBC 0.0 k/mm3 ()?? 08/25/2024 07:36 Abs. Neut 16.9 k/mm3 (High)?? 08/25/2024 07:36 Abs. Lymph 1.2 k/mm3 ()?? 08/25/2024 07:36 Abs. [place] 1.2 k/mm3 ()?? 08/25/2024 07:36 Abs. Eo 0.6 k/mm3 (High)?? 08/25/2024 07:36 Abs. Baso 0.2 k/mm3 (High)?? 08/25/2024 07:36 Neut % 83.3 % (High)?? 08/25/2024 07:36 Lymph % 5.8 % (Low)?? 08/25/2024 07:36 [place] % 5.8 % ()?? 08/25/2024 07:36 Eos % 2.8 % ()?? 08/25/2024 07:36 Baso % 1.1 % ()?? 08/25/2024 07:36 Imm Gran 1.2 % ()?? 08/25/2024 07:36 Abs. Imm Gran 0.2 k/mm3 ()?? 08/25/2024 07:36 ?? CARDIAC Nt-Probnp 567 pg/mL (High)?? 08/25/2024 07:36 High Sensitivity Troponin (HSTnT) 17 ng/L ()?? 08/25/2024 07:36 ?? CHEM GENERAL Sodium 137 mmol/L ()?? 08/25/2024 07:36 Potassium 4.4 mmol/L ()?? 08/25/2024 07:36 Chloride 100 mmol/L ()?? 08/25/2024 07:36 Bicarbonate Level 22 mmol/L ()?? 08/25/2024 07:36 Anion Gap 15 mmol/L ()?? 08/25/2024 07:36 Glucose Level 220 mg/dL (High)?? 08/25/2024 07:36 Glucose, POC 196 mg/dL (High)?? 08/25/2024 07:23 BUN 29 mg/dL (High)?? 08/25/2024 07:36 Creatinine-Blood 0.86 mg/dL ()?? 08/25/2024 07:36 Estimated GFR Creatinine 92 ML/MIN/1.73 M2 ()?? 08/25/2024 07:36 Calcium 9.8 mg/dL ()?? 08/25/2024 07:36 Lactate 2.5 mmol/L (High)?? 08/25/2024 09:37 ?? URINE OTHER Est Creatinine Clearance 82.36 mL/min ()?? 08/25/2024 08:44 ?? VIROLOGY Influenza A PCR NEGATIVE ()?? 08/25/2024 07:42 Influenza B PCR NEGATIVE ()?? 08/25/2024 07:42 RSV PCR NEGATIVE ()?? 08/25/2024 07:42 COVID-19 PCR Specimen Source NASAL ()?? 08/25/2024 07:42 COVID-19 PCR Result NEGATIVE ()?? 08/25/2024 07:42 ? EKG study * Event Display: ECG 12-Lead Authored Date: Please click on pdf link to open report * Event Display: ECG 12-Lead Authored Date: Ventricular Rate: 92 BPM Atrial Rate: 92 BPM P-R Interval: 146 ms QRS Duration: 176 ms Q-T Interval: 454 ms QTC Calculation(Bazett): 561 ms P [place]: 54 degrees R [place]: 126 degrees T [place]: -31 degrees Atrial-sensed ventricular-paced rhythm with occasional Premature ventricular complexes Abnormal ECG When compared with ECG of 12-Dec-2021 12:16, Premature ventricular complexes are now Present Vent. rate has increased by 26 bpm Confirmed by JOSEPH FLETCHER MD ([id number]) on 08/25/2024 1:16:29 PM [place]: JOSEPH FLETCHER MD US Heart * Event Display: Echocardiogram - Complete Authored Date: [id number] Transthoracic Echocardiography Report (TTE) Patient Demographics Patient Name MIMI SPIVEY Date of Study 08/26/2024 Corporate Gender Male Facility Race .[id number] Ethnicity Date of 1950 Height: 70.87 inches Age 74 year(s) Weight: 257.94 pounds Accession Number [id number] BSA: 2.35 m2 Room Number [id number] BMI: 36.11 kg/m2 Referring [facility] Parminder Monique II Interpreting Yesika Huynh Physician SABINO Physician Property Valuer [facility] Fellow Scar Saleem MD Indications Congestive heart failure. Clinical History Hypertension. Diabetes Mellitus. Dyslipidemia. Cardiomyopathy. Hyperlipidemia. CAD. Obesity. Previous CABG 2019 . PAD AVR CHF Study Data Type of Study TTE procedure:Echo Complete-(Doppler, Colorflow) with Contrast. Procedure Information:Definity was administered by Concrete Swimming Pool Installer . Study Date08/26/2024 Start Time: 10:55 AM Study Location: [facility] [place] Adult Echo Study Status: Bedside Patient Status: Routine Technical Quality: Technically difficult due to body habitus. Blood Pressure:117/59 mmHg EKG: Paced HR: 67 bpm Contrast Medium: Definity. Amount - 2 ml Allergies - Avocado. - Bananas. - Other allergy:(kiwi and chestnuts). 2D Measurements LV Diastolic Dimension: 6.4 cm LV Systolic Dimension: 5.3 cm LV Septum Diastolic: 1 cm LV PW Diastolic: 1 cm AO Root Dimension: 4.1 cm LA Dimension: 6.6 cm LA ESV (BP):104 ml LVOT Stroke Volume: 96.05 ml LA ESV Index: 44 ml/m2 Stroke Volume Index40.87 ml/m2 LVOT: 2.6 cm Cardiac Index:2.74 l/min/m2 Ascending Aorta:4 cm Doppler Measurements AV Peak Velocity: 251 cm/s MV Peak E-Wave: 85.9 cm/s AV Peak Gradient: 25.2 mmHg MV Peak A-Wave: 68.1 cm/s AV Mean Gradient: 15 mmHg MV E/A Ratio: 1.26 AV VTI:53.4 cm MV P1/2t: 72 msec LVOT Peak Velocity: 92.2 cm/s LVOT VTI18.1 cm MV Deceleration Time: 244 msec AV Area (Continuity):1.8 cm2 MV Area (PHT): 3.06 cm2 PV Peak Velocity: 76.4 cm/s PV Peak Gradient: 2.33 mmHg E' Septal Velocity: 4.9 cm/s E' Lateral Velocity: 9.46 cm/s E/Med E':[id number] E/Lat E':[id number] Cardiac Anatomy Left Ventricle/Interventricular Septum The left ventricle is poorly visualized, improved with the use of ultrasound enhancing agent. The left ventricle is moderately dilated. Left ventricular wall thickness is normal. The LV systolic function is moderately reduced. The left ventricular ejection fraction visually is 30-35%. EF 36% by modified Hwang's method. There is global hypokinesis with regional variation. Unable to assess diastolic function due to severe mitral annulus calcification . Left Atrium/Interatrial Septum The left atrium is moderately dilated. Aortic Valve There is a 25 mm Trifecta GT bioprosthetic valve in the aortic position. There is no significant prosthetic valve regurgitation or paravalvular leak. The mean gradient is 17 mmHg. Mitral Valve There is severe mitral annular calcification. The mitral valve appears moderately thickened and calcified. There is no mitral stenosis. There is trace mitral regurgitation. Aorta The indexed aortic root is normal in size (4.1 cm, indexed 1.74 cm/m2). The indexed ascending aorta is normal (4.0 cm, indexed 1.7 cm/m2). Right Ventricle A pacer/ICD wire is seen in the right ventricle. The right ventricle is poorly visualized. The right ventricle is dilated. Right ventricular systolic function is preserved. Right Atrium The right atrium is normal in size. Pulmonic Valve The pulmonic valve is poorly visualized. The pulmonic valve is functionally normal. There is trace pulmonic regurgitation. Tricuspid Valve The tricuspid valve is poorly visualized. There is no significant tricuspid valve regurgitation. Pumonary Artery An accurate pulmonary artery pressure could not be obtained. Venous Structures The inferior vena cava appears dilated. Inferior vena cava inspiratory collapse is normal . Pericardium/Extracardiac There is no pericardial effusion. Summary The left ventricle is poorly visualized, improved with the use of ultrasound enhancing agent. The left ventricle is moderately dilated. Left ventricular wall thickness is normal. The LV systolic function is moderately reduced. The left ventricular ejection fraction visually is 30-35%. EF 36% by modified Hwang's method. There is global hypokinesis with regional variation. Unable to assess diastolic function due to severe mitral annulus calcification . There is a 25 mm Trifecta GT bioprosthetic valve in the aortic position. There is no significant prosthetic valve regurgitation or paravalvular leak. The mean gradient is 17 mmHg. There is severe mitral annular calcification. The mitral valve appears moderately thickened and calcified. There is no mitral stenosis. There is trace mitral regurgitation. A pacer/ICD wire is seen in the right ventricle. The right ventricle is poorly visualized. The right ventricle is dilated. Right ventricular systolic function is preserved. There is no pericardial effusion. Comparison Comparison is made to the study of October 22, 2017. Patient has had a surgical bioprosthetic placed in the aortic position since then. Signature * Event Display: Echocardiogram - Complete Authored Date: Cardiology * Event Display: Cardiac Rhythm Strips Authored Date: Hospital Progress note * Scottie Palmer RN: VERIFY, PERFORM, SIGN Event Display: Progress Note Hospital Authored Date: Patient: MIMI SPIVEY Age: 74 years Sex: Male : 1950 Associated Diagnoses: None Author: Scottie Palmer RN Findings Narrative/Incidental No new issues during the shift, denies SOB. Independently ambulating with steady gait. Slept well. Needs attended. * Kandy Hamilton RN: PERFORM, SIGN, VERIFY Event Display: Progress Note Hospital Authored Date: Patient: MIMI SPIVEY Age: 74 years Sex: Male : 1950 Associated Diagnoses: None Author: Kandy Hamilton RN Findings Problem Related to Alteration in Respiratory Function (new) : Alteration in Respiratory Function/new 08/27/2024 14:00 EST Alteration in Resp Status Related to Pneumonia Goals & Outcomes, Respiratory Pt will maintain/resume baseline physical assessment, Pt will maintain adequate nutritional intake, Pt will maintain/resume normal fluid/electrolyte balance, Pt willnot develop complications r/t immobility, Pt will demonstrate proper technique w/self care procedures Interventions, Respiratory Assess/monitor tolerance to IV infusions; verify rate/dose, Position forcomfort & optimal oxygenation, Monitor sputum color & consistency. Report changes to MD KING Goals/Interventions, Respiratory Yes Respiratory, Problem Start 08/24/2024 17:40 Reviewed Plan with, Respiratory Patient Patient Progression, Respiratory Patient progressing according to plan . Nursing Data Vital Signs : VITAL SIGNS SECTION 08/27/2024 13:00 EST Temperature 98.5 DegF Temperature Route Oral Pulse Rate 81 bpm Respiratory Rate 18 br/min Systolic Blood Pressure 113 mm Hg Diastolic Blood Pressure 62 mm Hg Blood pressure sites Arm, right Pulse Pressure 51 mm Hg Oxygen Saturation 96 % Mode of Delivery (Oxygen) Room air . Evaluation 7A-7P Pt alert, oriented x4, denies pain/discomfort, compliant with meds/assessments, is independent and ambulatory in room. Pt on 1000ml/day fluid restriction, was educated on strict compliance due to CHF. Pt observed resting in bed watching TV at this time. Bed locked and in lowest position for safety. Nursing and interdisciplinary care continues.... * Miguel Chun MD: PERFORM, MODIFY Event Display: Progress Note Hospital Authored Date: Patient: ??MIMI SPIVEY ? Age:??74 Years?Sex:??Male?:??1950?? Subjective Patient??patient??seen and examined at the morning clinical events reviewed. Patient was transferred from [facility]. Admitted for acute hypoxic respiratory failure due to pneumonia Patient was he is feeling better results with much improved his nasal??cough. ?? Denied any chest pain. Denies any fever. No nausea no vomiting no abdominal pain No diarrhea. ?? Labs reviewed still has significant leukocytosis but trending down. Echocardiogram reviewed. Review of Systems Negative except mentioned above Objective Measurements?? Height: 180 cm (08/27/24) Weight: 117 kg (08/25/24) Dry Weight: 117 kg (08/25/24) Body Mass Index:??36.11 kg/m2??Critical (08/25/24) ? Vital Signs?? Temperature: 97.7 DegF (08/27/24 07:00:00) Temperature Route: Oral (08/27/24 07:00:00) Pulse Rate: 84 bpm (08/27/24 09:38:00) Respiratory Rate: 18 br/min (08/27/24 09:38:00) Systolic Blood Pressure: 120 mm Hg (08/27/24 09:38:00) Diastolic Blood Pressure: 67 mm Hg (08/27/24 09:38:00) Blood pressure sites: Arm, right (08/27/24 07:00:00) Mean Arterial Pressure: 94 mm Hg (08/27/24 02:00:00) Pulse Pressure: 55 mm Hg (08/27/24 07:00:00) Oxygen Saturation: 97 % (08/27/24 07:00:00) Mode of Delivery (Oxygen): Room air (08/27/24 07:00:00) Early Warning Score: 5 (08/27/24 09:44:06) ? Physical Exam Constitutional: Alert, in no distress. Mental Status: Oriented to person, place and time. Head: Normocephalic. Neck: Supple, Full range of motion. Respiratory: Minimal crackles present no wheezing. Cardiovascular: S1 S2 regular. No murmurs, rubs or gallops. Gastrointestinal: Abdomen soft, non-tender, non-distended. Normal bowel sounds. Neurologic: Cranial nerves II-XII grossly intact. No focal neurological deficits. Psychiatric: Normal mood and affect Results Recent Labs BACTERIOLOGY Blood Culture Results Preliminary report ()?? 08/25/2024 07:36 Blood Culture Isolate 1 Comment ()?? 08/25/2024 07:36 Blood Cult 2 Results Preliminary report ()?? 08/25/2024 07:36 Blood Culture 2 Isolate 1 Comment ()?? 08/25/2024 07:36 ?? BLOOD COUNT & DIFF WBC 17.0 k/mm3 (High)?? 08/27/2024 08:17 RBC 6.34 m/mm3 (High)?? 08/27/2024 08:17 Hgb 17.3 Gm/dL (High)?? 08/27/2024 08:17 Hct 53.5 % (High)?? 08/27/2024 08:17 MCV 84.4 femtoliters ()?? 08/27/2024 08:17 MCH 27.3 pg ()?? 08/27/2024 08:17 MCHC 32.3 Gm/dL (Low)?? 08/27/2024 08:17 Platelet Count 660 k/mm3 (High)?? 08/27/2024 08:17 RDW-SD 49.1 femtoliters (High)?? 08/27/2024 08:17 MPV 10.4 femtoliters ()?? 08/27/2024 08:17 Nucleated RBC (Automated) 0.0 #/100 WBC'S ()?? 08/27/2024 08:17 Abs. NRBC 0.0 k/mm3 ()?? 08/27/2024 08:17 ?? CARDIAC High Sensitivity Troponin (HSTnT) 95 ng/L (Critical)?? 08/26/2024 09:10 ?? CHEM GENERAL Sodium 138 mmol/L ()?? 08/27/2024 08:19 Potassium 4.5 mmol/L ()?? 08/27/2024 08:19 Chloride 103 mmol/L ()?? 08/27/2024 08:19 Bicarbonate Level 24 mmol/L ()?? 08/27/2024 08:19 Anion Gap 11 mmol/L ()?? 08/27/2024 08:19 Glucose Level 110 mg/dL (High)?? 08/26/2024 09:10 Glucose, POC 108 mg/dL (High)?? 08/27/2024 07:47 BUN 29 mg/dL (High)?? 08/27/2024 08:19 Creatinine-Blood 0.89 mg/dL ()?? 08/27/2024 08:19 Estimated GFR Creatinine 91 ML/MIN/1.73 M2 ()?? 08/27/2024 08:19 Calcium 9.7 mg/dL ()?? 08/26/2024 09:10 Magnesium 1.9 mg/dL ()?? 08/27/2024 08:19 ?? URINE OTHER Est Creatinine Clearance 79.58 mL/min ()?? 08/27/2024 08:56 ? Assessment/Plan ?Mimi is a 74-year-old gentleman with a past medical history of coronary artery disease status post CABG, hypertension, hyperlipidemia, type 2 diabetes on insulin, peripheral artery disease??status post??BLE bypass, carotid artery disease status post CEA, aortic stenosis status post aortic valve replacement??and??chronic heart failure with unspecified ejection fraction who[facility].?? Imaging revealing for multifocal pneumonia and patient now admitted for further treatment. ??Initially requiring intermediate care unitbut now has had improvement in respiratory status and downgrading to medical floor. ?? Acute respiratory failure with hypoxia (J96.01): Improving Multifocal pneumonia (J18.9):? Patient presenting to the hospital with acute onset of wheezing and shortness of breath.?? Chest x-ray was obtained in the emergency department that showed extensive changes bilaterally most consistent with multifocal pneumonia and patient also notably was found to have a leukocytosis with a? Patient was initially admitted to intermediate care unit due to requirement for high flow nasal cannula but has been able to be weaned off of this and is now down to 3 L of oxygen will be triaged out ofintermediate care and continue on antibiotics.?? COVID, flu and RSV testing was performed and negative ??? Continue ceftriaxone and doxycycline ??? Continue oxygen supplementation, wean as tolerated ??? Follow-up blood culture no growth up to date ?Leukocytosis trending down but is still??has significant leukocytosis. ??Continue to monitor. Weaned off oxygen. ? Chronic HFrEF (heart failure with reduced ejection fraction) (I50.22):??: Repeat echocardiogram revealed ejection fraction 30 to 35%. I reviewed the previous echocardiogram??EF looks similar. Patient looks euvolemic on exam. ? Continue carvedilol and Entresto ??? Continue Lasix p.o. dosing ??? Continue spironolactone ??? Aspirin and statin ??? Echocardiogram ordered ??? Monitor fluid status ?? Elevated Troponin (R79.89) Patient noted to have an elevated troponin on presentation that increased to 142.?? He denies any chest pain with this and EKG was obtained that demonstrated ventricular paced rhythm.?? Ultimately repeat troponin found to be downtrending and it is likely that this was demand ischemia in the settingof patient's hypoxia.?? No further troponin testing required but will monitor for any development of chest pain. ?? Diabetes mellitus type 2 in obese (E11.69):? Patient home diabetic regiment Lantus 100 units at bedtime as well as sliding scale 18 units 3 times a day before meals.?? Additionally patient is on metformin as well as pioglitazone and Jardiance.?Continue Lantus 100 units ??? Patient takes??lispro 18 units 3 times a day before meals. ??He had an episode of hypoglycemia.??Will??hold scheduled lispro we will just do the sliding scale.?? Will likely to be discharged on sliding scale because of hypoglycemia. Hypoglycemia emergency measures ordered. ? Sliding scale insulin ??? Continue metformin and pioglitazone as well as dapagliflozin in place of empagliflozin ? Dyslipidemia (E78.5):??Continue statin Hypertension (I10):??Continue carvedilol Carotid artery disease (I77.9): Hx of CEA. ASA, statin PAD (peripheral artery disease) (I73.9): ASA, statin Coronary artery disease (I25.10):??s/p CABG, Coreg, ASA, statin ?? DVT prophylaxis:??apixaban Code status:??Full code ?? Ongoing medical necessities:??Acute hypoxic resp failure, multifocal pneumonia,??hypoglycemia, ?? Estimated discharge date:??08/28/2024 ?? Discussed the plan with the patient ? Note * Alisha Perkins RN: PERFORM Event Display: Discharge/Transfer Note Hospital Authored Date: [id number] Nursing Discharge Note Entered On: 08/28/2024 10:51 EST Performed On: 08/28/2024 10:50 EST by Alisha Perkins RN Nursing Discharge Note 2 Discharge Time : 08/28/2024 10:50 EST Discharge Level of Care at Discharge : Home/Fpc/Foster Care Patient Left Unit Via : Ambulatory Patient Accompanied Off Unit with : Responsible adult DC Instructions Provided & Signed by Pt : Yes Patient Understands D/C Instructions : Yes Patient Instructions Discharge Signed : Yes Did Pt have Specialty Bed or Wound Vac : No Alisha Perkins RN - 08/28/2024 10:51 EST * Miguel Chun MD: PERFORM Event Display: Discharge/Transfer Note Hospital Authored Date: [id number] Patient: ??MIMI SPIVEY ? Age:??74 Years?Sex:??Male?:??1950?? Patient Information Discharge Location: D6A Primary Care Physician: Christiano LUIS, Farooq Cortes Admit Date/Time: 08/25/2024 09:34 Discharge Disposition Discharge Disposition: ?? Discharge Diagnosis ?? Acute respiratory failure with hypoxia (J96.01) Multifocal pneumonia (J18.9) Chronic HFrEF (heart failure with reduced ejection fraction) (I50.22) Coronary artery disease (I25.10) PAD (peripheral artery disease) (I73.9) Carotid artery disease (I77.9) Diabetes mellitus type 2 in obese (E11.69) Hypertension (I10) Dyslipidemia (E78.5) Aortic valve replaced (Z95.2) _ Discharge Medications Acetaminophen (Tylenol 325 mg oral tablet)??650 Milligram By Mouth Every 6 hours as needed Pain , Moderate Albuterol (Albuterol (Eqv-ProAir HFA) 90 mcg/inh inhalation aerosol)??1 inhalation 90 Microgram Inhalation Every 4 hours as needed as needed for shortness of breath or wheezing for 30 Days apixaban (apixaban 5 mg oral tablet)??1 tab(s) 5 Milligram By Mouth 2 times a day for 30 Days Aspirin (aspirin 81 mg oral delayed release tablet)??81 Milligram 1 tablet By Mouth Daily Atorvastatin (atorvastatin 40 mg oral tablet)??1 tab(s) 40 Milligram By Mouth Daily at bedtime Carvedilol (carvedilol 25 mg oral tablet)??25 Milligram 1 tablet By Mouth 2 times a day 180 each, 0Refill(s), TAKE 1 TABLET BY MOUTH TWICE DAILY WITH MEALS Cefpodoxime (cefpodoxime 200 mg oral tablet)??1 tab(s) 200 Milligram By Mouth Every 12 hours for 3 Days Clonazepam (clonazePAM 0.5 mg oral tablet)??1 tab(s) 0.5 Milligram By Mouth 3 times a day as neededAnxiety 0.25 mg during the day and 0.5 mg at bedtime, (total 0.5 tid) Doxycycline (doxycycline hyclate 100 mg oral capsule)??100 Milligram By Mouth Every 12 hours for 3 Days Duloxetine (Cymbalta 30 mg oral enteric coated capsule)??1 capsule 30 Milligram By Mouth Daily in AM do not crush or chew empagliflozin (Jardiance 10 mg oral tablet)??1 tab(s) 10 Milligram By Mouth Daily in AM fenofibric acid (Trilipix 135 mg oral delayed release capsule)??1 capsule 135 Milligram By Mouth Daily in AM Furosemide (furosemide 40 mg oral tablet)??40 Milligram 1 tablet By Mouth Daily in AM Gabapentin (gabapentin 100 mg oral capsule)??100 Milligram 1 capsule By Mouth 3 times a day 270 each, 0 Refill(s) Insulin Glargine (Lantus Inj)??100 unit(s) Subcutaneous Injection Daily at bedtime Insulin Lispro??2-10 units Subcutaneous Injection 3 times a day before meals sliding [id number]: 2 units, 200-249; 4 units, 250-299; 6 units, 300-349: 8 units, 350-399: 10 units, call if brenna 400. Metformin (metFORMIN 500 mg oral tablet, extended release)??2 tab(s) 1,000 Milligram By Mouth 2 times a day Pioglitazone (pioglitazone 30 mg oral tablet)??1 tab(s) 30 Milligram By Mouth Daily at bedtime sacubitril-valsartan (Entresto 49 mg-51 mg oral tablet)??1 tab(s) By Mouth 2 times a day semaglutide (Ozempic (1 mg dose) 4 mg/3 mL subcutaneous solution)??1 Milligram Subcutaneous Injection Every week 3 mL, 0 Refill(s), INJECT 1MG SUBCUTANEOUSLY ??EVERY 7 DAYS Spironolactone (spironolactone 50 mg oral tablet)??1 tab(s) 50 Milligram By Mouth Daily in AM ? Medications Started cefpodoxime, doxycycline, albuterol Doses Changed changed insulin lispro to sliding scale only Hospital Course ?Mimi is a 74-year-old gentleman with a past medical history of coronary artery disease status post CABG, hypertension, hyperlipidemia, type 2 diabetes on insulin, peripheral artery disease??status post??BLE bypass, carotid artery disease status post CEA, aortic stenosis status post aortic valve replacement??and??chronic heart failure with unspecified ejection fraction [facility].?? Imaging revealing for multifocal pneumonia and patient now admitted for further treatment. ??Initially requiring intermediate care unitbut now has had improvement in respiratory status and downgrading to medical floor. ?? Acute respiratory failure with hypoxia (J96.01): Improved Multifocal pneumonia (J18.9):? Patient presenting to the hospital with acute onset of wheezing and shortness of breath.?? Chest x-ray was obtained in the emergency department that showed extensive changes bilaterally most consistent with multifocal pneumonia and patient also notably was found to have a leukocytosis with a? Patient was initially admitted to intermediate care unit due to requirement for high flow nasal cannula but has been able to be weaned off of this and is now down to 3 L of oxygen will be triaged out ofintermediate care and continue on antibiotics.?? COVID, flu and RSV testing was performed and negative ??? Continue ceftriaxone and doxycycline ??? Continue oxygen supplementation, wean as tolerated ??? Follow-up blood culture no growth up to date ?Leukocytosis trending down but is still??has significant leukocytosis. ??Continue to monitor. Weaned off oxygen.?? Patient received ceftriaxone and doxycycline. ?? Patient is doing much better. Denied any difficulty breathing.?? Cough much improved.?? He is currently doing okay on room air. Will discharge him with??3 more days of cefpodoxime and doxycycline to complete the course. ? Chronic HFrEF (heart failure with reduced ejection fraction) (I50.22):??: Repeat echocardiogram revealed ejection fraction 30 to 35%. I reviewed the previous echocardiogram??EF looks similar. Patient looks euvolemic on exam. ? Continue carvedilol and Entresto ??? Continue Lasix p.o. dosing ??? Continue spironolactone ??? Aspirin and statin ? Elevated Troponin (R79.89) Patient noted to have an elevated troponin on presentation that increased to 142.?? He denies any chest pain with this and EKG was obtained that demonstrated ventricular paced rhythm.?? Ultimately repeat troponin found to be downtrending and it is likely that this was demand ischemia in the settingof patient's hypoxia.? Diabetes mellitus type 2 in obese (E11.69):? Patient home diabetic regiment Lantus 100 units at bedtime as well as sliding scale 18 units 3 times a day before meals.?? Additionally patient is on metformin as well as pioglitazone and Jardiance.?Continue Lantus 100 units ??? Patient takes??lispro 18 units 3 times a day before meals. ??He had an episode of hypoglycemia.??Will??hold scheduled lispro we will just do the sliding scale.?? Hypoglycemia emergency measures ordered. ? Sliding scale insulin ??? Continue metformin and pioglitazone as well as dapagliflozin in place of empagliflozin Discharge with current dose of the Lantus 100 units and??discharged with sliding scale lispro only.? Dyslipidemia (E78.5):??Continue statin Hypertension (I10):??Continue carvedilol Carotid artery disease (I77.9): Hx of CEA. ASA, statin PAD (peripheral artery disease) (I73.9): ASA, statin Coronary artery disease (I25.10):??s/p CABG, Coreg, ASA, statin ?? Objective Assessment and Plan ? Measurements?? Height: 180 cm (08/27/24) Weight: 117 kg (08/25/24) Dry Weight: 117 kg (08/25/24) Body Mass Index:??36.11 kg/m2??Critical (08/25/24) ? Vital Signs?? Temperature: 98 DegF (08/28/24 09:00:00) Temperature Route: Oral (08/28/24 09:00:00) Pulse Rate: 78 bpm (08/28/24 09:43:00) Respiratory Rate: 20 br/min (08/28/24 09:43:00) Systolic Blood Pressure: 123 mm Hg (08/28/24 09:43:00) Diastolic Blood Pressure:??53 mm Hg??Low (08/28/24 09:43:00) Blood pressure sites: Arm, left (08/28/24 09:00:00) Pulse Pressure: 51 mm Hg (08/27/24 13:00:00) Oxygen Saturation:??93 %??Low (08/28/24 09:00:00) Mode of Delivery (Oxygen): Room air (08/28/24 00:00:00) Early Warning Score: 5 (08/28/24 09:52:54) ? . Physical Exam Constitutional: Alert, in no distress. Mental Status: Oriented to person, place and time. Head: Normocephalic. Neck: Supple, Full range of motion. Respiratory: Clear to auscultation. No wheezing, rales or rhonchi. Cardiovascular: S1 S2 regular. No murmurs, rubs or gallops. Gastrointestinal: Abdomen soft, non-tender, non-distended. Normal bowel sounds. Neurologic: Cranial nerves II-XII grossly intact. No focal neurological deficits. . Psychiatric: Normal mood and affect Pending Results High??Sensitivity??Troponin T ordered on 08/25/2024 Follow-Up Appointments Added Follow Up ?Time Frame ?Comments [facility] [phone]?1 week Post Discharge Care Discharge ?08/28/24 9:54:00 EST ?Order Comment:?? Discharge Prescriptions ?ePrescribed, 08/28/24 9:54:00 EST ?Order Comment:?? Home Health Face to Face ^HomeHealthFTF Results Image ?XR Chest Portable??08/25/2024 07:50 by Aliyah Robins ?Echo Complete-Doppler, Colorflow, M-Mode??08/26/2024 10:55 by Yesika Huynh MD ? 35??minutes spent on discharge * Kristin King RN: PERFORM Event Display: Patient Education/Instruction Authored Date: [id number] Inpatient Adult Discharge Instructions. [address] [address] Name: MIMI SPIVEY : 1950?? Visit: 08/25/2024 09:34?? Current Date: 08/28/2024 10:35 ?? Account: [id number]?? Inpatient Adult Discharge Instructions We would like to thank you for allowing us to assist you with your healthcare needs. The following includes patient education materials and information regarding your injury/illness. Our entire staffstrives to provide an excellent experience for our patients and their families. PLEASE ENSURE YOU FOLLOW-UP PER THE INSTRUCTIONS BELOW! ?? YOUR OPINION IS IMPORTANT TO US! Please complete the survey you may receive by mail or email. Your feedback will be used to make improvements to the healthcare experiences of our patients and their families. Surveys are administered by [employer] ?? If further treatment with your primary care physician or another doctor is recommended, it is important for you to keep the appointment. Call your primary care physician or return to the Emergency Department immediately if your condition worsens, fails to improve, or new symptoms develop. If you need to find a doctor, you can call [facility] for a referral at [phone] or toll free at [phone] or log in to [email or web address].. ?? [facility], in keeping with [facility] guidance, no longer requires face masks for staff, patientsor visitors in most situations. Similiar to time spent indoors at other locations, there is the chance that you were exposed to repiratory viruses during your time with us (such as flu or COVID-19). If you develop symptoms concerning for a viral respiratory infection, please seek testing (and treatment if indicated) from your medical provider or home test kit. ?? You can view and manage your care through the patient portal or by using a health care justin of your choosing. First To File is a website that allows you to securely view your medical information including your hospital discharge summary, office visit summaries, medications and follow-up visits. You can also request appointments, renew medications, and request access to your medical information using a health care justin of your choosing, or just ask a question. You can enroll at [email or web address] or register during your next office visit. You have been discharged from [facility], Patient Care Unit: D6A??. If you have any questions regarding these instructions, including results of studies pending, afteryou leave, please call us and we will be happy to assist you 04/02. [facility] Your Care Team Attending Physician Miguel Chun MD?? Consulting Providers Miguel Chun MD?? Discharging Providers Miguel Chun MD Reason for Your Visit acute hypoxic respiratory failure?? Your Diagnosis Acute respiratory failure with hypoxia Aortic valve replaced Carotid artery disease CHF (congestive heart failure) Chronic HFrEF (heart failure with reduced ejection fraction) Coronary artery disease Diabetes mellitus type 2 in obese Dyslipidemia Hypertension Multifocal pneumonia PAD (peripheral artery disease) Tests Performed Below is a partial list of the tests performed during your hospitalization. You may have had other tests and procedures not included in this list. Please discuss all test results with your provider. Basic Metabolic Panel Blood Culture Blood Culture #2 Blood Culture 2 Results Blood Culture Result BUN Calcium Level CBC CBC w/ Differential COVID-19, RSV, and Flu A/B, Rapid PCR Creatinine Electrolytes Glucose Level GLUCOSE POC High??Sensitivity??Troponin T Lactate Level Magnesium Level Phosphorus Level ProBNP Troponin T, High Sensitivity XR Chest Portable B Type Natriuretic Peptide (NT-proBNP) (ProBNP)?? BUN?? Basic Metabolic Panel?? Blood Culture?? Blood Culture #2?? Blood Culture 2 Results?? Blood Culture Result?? CBC?? CBC w/ Differential?? COVID-19, RSV, and Flu A/B, Rapid PCR?? Calcium Level?? Creatinine?? Electrolytes?? Glucose Level?? Glucose POC?? High??Sensitivity??Troponin T (Troponin T, High Sensitivity)?? Lactic Acid Level (Lactate Level)?? Magnesium Level?? Phosphorus Level?? Chest Portable (XR Chest Portable)?? Primary Care Provider Christiano LUIS, Farooq Cortes? Advance Directive Health Care Proxy on File Yes - Health Care Proxy Discharge Vitals Temperature: 98 DegF Height: 180 cm Pulse Rate: 78 bpm Weight: 117 kg Respiratory Rate: 20 br/min Body Mass Index:??36.11 kg/m2??Critical Systolic Blood Pressure: 123 mm Hg Body surface area: 2.42 Diastolic Blood Pressure:??53 mm Hg??Low ?? Oxygen Saturation:??93 %??Low ?? Studies Pending All studies ordered during this hospital stay have been completed unless listed below. Please discuss all pending results with your provider listed above in these instructions. ?? High??Sensitivity??Troponin T?? What to do next Instructions From Your Doctor ?? Orders? 08/28/24 9:54:00 EST?? Prescriptions??, ??08/28/24 9:54:00 EST?? You Need to Schedule the Following Appointments Follow Up with??[facility] [phone] When:??Within 1 week Discharge Medications MIMI SPIVEY :1950 Visit Date:08/25/2024 Medications: Please continue your medications until treatment is completed or stopped by your provider. Medications not listed below should be discontinued. Discuss any questions related to medications with your provider. What How Much When Instructions Next Dose New Albuterol (Albuterol (Eqv-ProAir HFA) 90 mcg/ inh inhalation aerosol) 1 inhalation Inhalation Every 4 hours as needed for as needed for shortness of breath or wheezing Duration: 30 Days Pickup at [facility] #[id number] as needed New Cefpodoxime (cefpodoxime 200 mg oral tablet) 1 tab(s) Oral Every 12 hours Duration: 3 Days Pickup at [facility] #[id number] 08/28 9pm New Doxycycline (doxycycline hyclate 100 mg oral capsule) 100 Milligram Oral Every 12 hours Duration: 3 Days Pickup at [facility] #[id number] 08/28 9pm Changed Carvedilol (carvedilol 25 mg oral tablet) 1 tab(s) Oral Twice a day 180 each, 0 Refill(s), TAKE 1 TABLET BY MOUTH TWICE DAILY WITH MEALS ?? 08/28 9pm Changed Duloxetine (Cymbalta 30 mg oral enteric coated capsule) 1 capsule Oral Daily in the morning do not crush or chew ?? 08/29 9am Changed Insulin Glargine (Lantus Inj) 100 unit(s) Subcutaneous Injection Daily at Bedtime 08/28 bedtime Changed Insulin Lispro 2-10 units Subcutaneous Injection 3 times a day before meals sliding scale [id number]: 2 units, 200-249; 4 unints, 250-299; 6 units, 300-349: 8 units, 350- 399: 10 units, callMD if more than 400. ?? 08/28 before lunch Changed apixaban (apixaban 5 mg oral tablet) 1 tab(s) Oral Twice a day Duration: 30 Days Pickup at [facility] #[id number] 08/28 9pm Changed semaglutide (Ozempic (1 mg dose) 4 mg/ 3 mL subcutaneous solution) 1 Milligram Subcutaneous Injection Every week 3 mL, 0 Refill(s), INJECT 1MG SUBCUTANEOUSLY ??EVERY 7 DAYS ?? as previously taking Unchanged Acetaminophen (Tylenol 325 mg oral tablet) 650 Milligram Oral Every 6 hours as needed for Pain , Moderate as needed Unchanged Aspirin (aspirin 81 mg oral delayed release tablet) 1 tab(s) Oral Daily 08/29 9am Unchanged Atorvastatin (atorvastatin 40 mg oral tablet) 1 tab(s) Oral Daily at Bedtime 08/28 bedtime Unchanged Clonazepam (clonazePAM 0.5 mg oral tablet) 1 tab(s) Oral 3 times a day as needed for Anxiety 0.25 mg during the day and 0.5 mg at bedtime, (total 0.5 tid) ?? as needed Unchanged empagliflozin (Jardiance 10 mg oral tablet) 1 tab(s) Oral Daily in the morning 08/29 9am Unchanged fenofibric acid (Trilipix 135 mg oral delayed release capsule) 1 capsule Oral Daily in the morning 08/29 9am Unchanged Furosemide (furosemide 40 mg oral tablet) 1 tab(s) Oral Daily in the morning [facility][id number] 08/29 9am Unchanged Gabapentin (gabapentin 100 mg oral capsule) 1 capsule Oral 3 times a day 270 each, 0 Refill(s) ?? 08/28 3pm Unchanged Metformin (metFORMIN 500 mg oral tablet, extended release) 2 tab(s) Oral Twice a day 08/28 9pm Unchanged Pioglitazone (pioglitazone 30 mg oral tablet) 1 tab(s) Oral Daily at Bedtime 08/28 bedtime Unchanged sacubitril-valsartan (Entresto 49 mg-51 mg oral tablet) 1 tab(s) Oral Twice a day 08/28 9pm Unchanged Spironolactone (spironolactone 50 mg oral tablet) 1 tab(s) Oral Daily in the morning 08/29 9am Pharmacy Information [facility] [employer] [facility] #[id number]: [address] [place], [place] [id number] [phone] Prescription Given During Visit Albuterol (Albuterol (Eqv-ProAir HFA) 90 mcg/inh inhalation aerosol) - 1 inhalation = 90 mcg, Inhalation, Every 4 hours, # 8.5 Gm, 0 Refills, [facility] #[id number], [address] [place] [address] [phone]?? Cefpodoxime (cefpodoxime 200 mg oral tablet) - 1 tablet = 200 mg, By Mouth, Every 12 hours, # 6 tablet, 0 Refills, [facility] #[id number], [address] [place] [phone]?? Doxycycline (doxycycline hyclate 100 mg oral capsule) - 100 mg, By Mouth, Every 12 hours, # 6 capsule, 0 Refills, [facility] #[id number], [address] [place] [address] [phone]?? Furosemide (furosemide 40 mg oral tablet) - 1 tablet = 40 mg, By Mouth, Daily in AM, # 30 tablet, 0Refills, [facility] #[id number], [address] [place] [address] [phone]?? apixaban (apixaban 5 mg oral tablet) - 1 tablet = 5 mg, By Mouth, 2 times a day, # 60 tablet, 0 Refills, [facility] #[id number], [address] [place] [address] [phone]?? Laboratory Results Below is a partial list of the most recent Laboratory test results done prior to this discharge. You may have had other tests and procedures not included in this list. Please discuss all test resultswith your provider. Est Creatinine Clearance - 69.44 mL/min (08/28/2024) Basic Metabolic Panel (08/26/2024) ???Sodium - 138 mmol/L???Potassium - 4.7 mmol/L???Chloride - 103 mmol/L???Bicarbonate Level - 23 mmol/L???Anion Gap - 12 mmol/L???Glucose Level - 110 mg/dL???BUN - 32 mg/dL???Creatinine-Blood - 0.91 mg/dL???Estimated GFR Creatinine - 90 ML/MIN/1.73 M2???Calcium - 9.7 mg/dL Blood Culture (08/25/2024) ???Blood Culture Results - Preliminary report???Blood Culture Specimen Source - BLOOD Blood Culture #2 (08/25/2024) ???Blood Cult 2 Results - Preliminary report???Blood Culture 2 Specimen Source - BLOOD Blood Culture 2 Results (08/25/2024) ???Blood Culture 2 Isolate 1 - Comment Blood Culture Result (08/25/2024) ???Blood Culture Isolate 1 - Comment BUN (08/28/2024) ???BUN - 35 mg/dL Calcium Level (08/28/2024) ???Calcium - 10.1 mg/dL CBC (08/27/2024) ???WBC - 17.0 k/mm3???RBC - 6.34 m/mm3???Hgb - 17.3 Gm/dL???Hct - 53.5 %???MCV - 84.4 femtoliters???MCH - 27.3 pg???MCHC - 32.3 Gm/dL???Platelet Count - 660 k/mm3???RDW-SD - 49.1 femtoliters???MPV - 10.4 femtoliters???Nucleated RBC (Automated) - 0.0 #/100 WBC'S???Abs. NRBC - 0.0 k/mm3 CBC w/ Differential (08/28/2024) ???WBC - 17.0 k/mm3???RBC - 6.45 m/mm3???Hgb - 17.2 Gm/dL???Hct - 54.3 %???MCV - 84.2 femtoliters???MCH - 26.7 pg???MCHC - 31.7 Gm/dL???Platelet Count - 691 k/mm3???RDW-SD - 50.0 femtoliters???MPV - 10.6 femtoliters???Nucleated RBC (Automated) - 0.0 #/100 WBC'S???Abs. NRBC - 0.0 k/mm3???Abs. Neut -13.3 k/mm3???Abs. Lymph - 1.5 k/mm3???Abs. [place] - 1.4 k/mm3???Abs. Eo - 0.5 k/mm3???Abs. Baso - 0.2k/mm3???Neut % - 78.3 %???Lymph % - 8.9 %???[place] % - 8.3 %???Eos % - 2.8 %???Baso % - 1.1 %???Imm Gran - 0.6 %???Abs. Imm Gran - 0.1 k/mm3 COVID-19, RSV, and Flu A/B, Rapid PCR (08/25/2024) ???Influenza A PCR - NEGATIVE???Influenza B PCR - NEGATIVE???RSV PCR - NEGATIVE???COVID-19 PCR Specimen Source - NASAL???COVID-19 PCR Result - NEGATIVE Creatinine (08/28/2024) ???Creatinine-Blood - 1.02 mg/dL???Estimated GFR Creatinine - 78 ML/MIN/1.73 M2 Electrolytes (08/28/2024) ???Sodium - 137 mmol/L???Potassium - 4.3 mmol/L???Chloride - 103 mmol/L???Bicarbonate Level - 20 mmol/L???Anion Gap - 14 mmol/L Glucose Level (08/28/2024) ???Glucose Level - 58 mg/dL GLUCOSE POC (08/28/2024) ???Glucose, POC - 131 mg/dL High??Sensitivity??Troponin T (08/25/2024) ???High Sensitivity Troponin (HSTnT) - 142 ng/L Lactate Level (08/25/2024) ???Lactate - 2.5 mmol/L Magnesium Level (08/27/2024) ???Magnesium - 1.9 mg/dL Phosphorus Level (08/28/2024) ???Phosphorus - 3.7 mg/dL ProBNP (08/25/2024) ???Nt-Probnp - 567 pg/mL Troponin T, High Sensitivity (08/26/2024) ???High Sensitivity Troponin (HSTnT) - 95 ng/L You will be contacted within 72 hours with your results. Immunizations This Visit Not Given Vaccine Commentsinfluenza virus vaccine, inactivated Patient Refuses Allergies (NKA means No Known Allergies) Bananas??(Hives) No Known Medication Allergies Problems Active Problems??(26) Anxiety?? (aortic stenosis)?? Asymptomatic carotid artery stenosis?? 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 CAD (coronary artery disease)?? Cardiomyopathy?? Carotid artery stenosis?? CHF (congestive heart failure)?? DM2 (diabetes mellitus, type 2), insulin?? Former smoker, 2 ppd X30 years, quit 2003?? Heart murmur?? History of complete heart block?? HTN (hypertension)?? Hx of CABG?? Hyperlipidemia?? Moderate Kyphoscoliosis?? Neuropathy?? Noncompliance with CPAP treatment?? Obesity (BMI 36 as of 01/12/2019)?? YAKELIN (obstructive sleep apnea)?? Osteomyelitis?? PAD (peripheral artery disease)?? PTSD (post-traumatic stress disorder)?? PVD (peripheral vascular disease)?? S/P AVR?? Severe obesity (BMI 35.0-39.9) with comorbidity?? Education Materials Below is the list of Educational Leaflet Providered with your Discharge Instructions. [employer] Patient Education - Albuterol?? [employer] Patient Education - Doxycycline?? [employer] Patient Education - Cefpodoxime?? [employer] Patient Education - What Is Heart Failure??? Valuables and Belongings I fully understand and agree that [facility] accepts no responsibility for all my personal property including clothing, toilet articles, radios, jewelry, dentures, hearing aids, rings, money, or any other property that is in my possession or is brought to me after admission. I understand certain valuables may be placed in a hospital safe for a short period of time. I understand that the hospital is not liable for loss or damage due to accident, fire, or other natural occurrence while said property is in the safe. I accept full responsibility for any personal property that I keep with me, and will not hold the hospital responsible in case of loss or disappearance. I acknowledge that i have been encouraged to send valuables and belongings home. ?? Review of Valuable and Belonging List: With patient, With witness Date for Pt to Sign Valuables/Belongings: 08/26/24 15:26:00 ?? Other Discharge Information ? Case Management Discharge Plan?? Discharge Plan?? Discharge Level of Care at Discharge: Home/Fpc/Foster Care ?? Pulmonary Rehab Status?? Pulmonary Rehab Discharge Status?? CPAP/BiPAP Mask Type: Full CPAP/BiPAP Mask Size: Large Respiratory Rate: 20 br/min ? Common Emergency Awareness Tips IS IT A STROKE? Act FAST and Check for these signs: FACE Does the face look uneven? ARM Does one arm drift down? SPEECH Does their speech sound strange? TIME Call 9-1-1 at any sign of stroke ?? Heart Attack Signs Chest discomfort: Most heart attacks involve discomfort in the center of the chest and lasts more than a few minutes, or goes away and comes back. It can feel like uncomfortable pressure, squeezing, fullness or pain. Discomfort in upper body: Symptoms can include pain or discomfort in one or both arms, back, neck, jaw or stomach. Shortness of breath: With or without discomfort. Other signs: Breaking out in a cold sweat, nausea, or lightheaded. Remember, MINUTES DO MATTER. If you experience any of these heart attack warning signs, call to get immediate medical attention! ?? Smoking can increase your chances of developing chronic health problems and can cause harmful effects to other family members in your house. If you smoke, you are strongly encouraged to quit. Please call [facility] [employer] Link at [phone] or [phone] ([phone]) or log in to [email or web address] for referrals to smoking cessation programs. ?? 708 Suicide & Crisis Lifeline is available 04/02 if you or someone you know needs to find a reason to keep living. By calling 113 you'll be connected to a skilled, trained counselor at a crisis center in your area. INPATIENT DISCHARGE INSTRUCTIONS SIGNATURE MIMI ALLEN Location:[facility] Registration Date and Time:08/25/2024 09:34 EST Primary Care Physician: Christiano LUIS, Farooq Cortes, Attending Physician: Miguel Chun MD, I MIMI SPIVEY, have received the above patient education materials/instructions and have verbalized understanding. If ambulance or transport services are being used I further acknowledge being given a choice of service. ?? If you need to contact me, please call me at this number: . Patient/Bottom Liquor Attendant Name: Patient/Bottom Liquor Attendant Signature: Relationship to Patient: Witness Name/Signature: Date: * Kristin King RN: PERFORM Event Display: Patient Education Leaflets Authored Date: [id number] Albuterol ?? [id number] Albuterol Brand Name(s): Proventil?? Syrup, Proventil?? Tablets, Ventolin?? Syrup, Ventolin?? Tablets, Volmax??, VoSpire?? ER; also available generically ?? salbutamol WHY is this medicine prescribed? Albuterol is used to prevent and treat wheezing, difficulty breathing, chest tightness, and coughing caused by lung diseases such as asthma and chronic obstructive pulmonary disease (COPD; a group ofdiseases that affect the lungs and airways). Albuterol is in a class of medications called bronchodilators. It works by relaxing and opening the air passages to the lungs to make breathing easier. HOW should this medicine be used? Albuterol comes as a tablet, a syrup, and an extended-release (long-acting) tablet to take by mouth. The tablets and syrup are usually taken three or four times a day. The extended-release tablets are usually taken once every 12 hours. Take albuterol at around the same times every day. Follow the directions on your prescription label carefully, and ask your doctor or pharmacist to explain any part you do not understand. Take albuterol exactly as directed. Do not take more or less of it or take it more often than prescribed by your doctor. Swallow the extended-release tablets whole with plenty of water or other liquid. Do not split, chew, or crush them. Your doctor may start you on a low dose of albuterol and gradually increase your dose. Albuterol may help control your symptoms but will not cure your condition. Continue to take albuterol even if you feel well. Do not stop taking albuterol without talking to your doctor. Call your doctor if your symptoms worsen or if you feel that albuterol no longer controls your symptoms. Are there OTHER USES for this medicine? This medication may be prescribed for other uses; ask your doctor or pharmacist for more information. What SPECIAL PRECAUTIONS should I follow? Before taking albuterol, ??? tell your doctor and pharmacist if you are allergic to albuterol, any other medications, or anyof the ingredients in albuterol tablets, extended-release tablets, or capsules. Ask your pharmacistfor a list of the ingredients. ??? Tell your doctor or pharmacist if you are taking the following medications or have stopped taking them within the past two weeks: antidepressants such as amitriptyline (Elavil), amoxapine (Asendin), clomipramine (Anafranil), desipramine (Norpramin), doxepin (Adapin, Sinequan), imipramine (Tofranil), nortriptyline (Aventyl, Pamelor), protriptyline (Vivactil), andtrimipramine (Surmontil); and monoamine oxidase (MAO) inhibitors, including isocarboxazid (Marplan), phenelzine (Nardil), selegiline (Eldepryl, Emsam, Zelapar), and tranylcypromine (Parnate)]. ??? Tell your doctor and pharmacist what prescription and nonprescription medications, vitamins, nutritional supplements, and herbal products you are taking or plan to take while taking albuterol tablets. Your doctor may need to change the doses of your medications or monitor you carefully for side effects. ??? tell your doctor if you have or have ever had an irregular heartbeat, heart disease, high blood pressure, hyperthyroidism (condition in which there is too much thyroid hormone in the body), diabetes, or seizures. ??? tell your doctor if you are , plan to become , or are breast-feeding. If you become while taking albuterol, call your doctor. ??? you should know that albuterol sometimes causes wheezing and difficulty breathing. If this happens, call your doctor right away. Do not use albuterol again unless your doctor tells you that you should. What SPECIAL DIETARY instructions should I follow? Unless your doctor tells you otherwise, continue your normal diet. What should I do IF I FORGET to take a dose? Take the missed dose as soon as you remember it. However, if it is almost time for the next dose, skip the missed dose and continue your regular dosing schedule. Do not take a double dose to make up for a missed one. What SIDE EFFECTS can this medicine cause? Some side effects can be serious. If you experience any of these symptoms, call your doctor immediately: ??? fast, pounding, or irregular heartbeat ??? chest pain ??? fever ??? blisters or rash ??? hives ??? itching ??? swelling of the face, throat, tongue, lips, eyes, hands, feet, ankles, or lower legs??? increased difficulty breathing ??? difficulty swallowing ??? hoarseness Albuterol may cause other side effects. Call your doctor if you have any unusual problems while taking this medication. What should I know about STORAGE and DISPOSAL of this medication? Keep this medication in the container it came in, tightly closed, and out of reach of children. Store it at room temperature and away from excess heat and moisture (not in the bathroom). Unneeded medications should be disposed of in special ways to ensure that pets, children, and otherpeople cannot consume them. However, you should not flush this medication down the toilet. Instead,the best way to dispose of your medication is through a medicine take-back program. Talk to your pharmacist or contact your local garbage/recycling department to learn about take-back programs in your community. See the FDA's Safe Disposal of Medicines website (https://goo.gl/c4Rm4p) for more information if you do not have access to a take-back program. It is important to keep all medication out of sight and reach of children as many containers (such as weekly pill minders and those for eye drops, creams, patches, and inhalers) are not child-resistant and young children can open them easily. To protect young children from poisoning, always lock safety caps and immediately place the medication in a safe location ??? one that is up and away and out of their sight and reach. https://www.upandaway.org What should I do in case of OVERDOSE? In case of overdose, call the poison control helpline at . Information is also available online at https://www.poisonhelp.org/help. If the victim has collapsed, had a seizure, has trouble breathing, or can't be awakened, immediately call emergency services at [phone]. Symptoms of overdose may include: ??? seizures ??? chest pain ??? fast, irregular or pounding heartbeat ??? nervousness ??? headache ??? uncontrollable shaking of a part of the body ??? dry mouth ??? nausea ??? dizziness ??? excessive tiredness ??? lack of energy ??? difficulty falling asleep or staying asleep What OTHER INFORMATION should I know? Keep all appointments with your doctor. Do not let anyone else take your medication. Ask your pharmacist any questions you have about refilling your prescription. It is important for you to keep a written list of all of the prescription and nonprescription (vmbt-trn-vhlgubf) medicines you are taking, as well as any products such as vitamins, minerals, or otherdietary supplements. You should bring this list with you each time you visit a doctor or if you areadmitted to a hospital. It is also important information to carry with you in case of emergencies. This report on medications is for your information only, and is not considered individual patient advice. Because of the changing nature of drug information, please consult your physician or pharmacist about specific clinical use. [employer] represents that the information provided hereunder was formulated with a reasonable standard of care, and in conformity with professional standards in the field. [employer] makes no representations or warranties, express or implied, including, but not limited to, any implied warranty of merchantability and/or fitness for a particular purpose, with respect to such information and specifically disclaims all such warranties. Users are advised that decisions regarding drug therapy are complex medical decisions requiring the independent, informed decision of an appropriate health youth care worker, and the information is provided for informational purposes only. The entire monograph for a drug should be reviewed for a thorough understanding of the drug's actions, uses and side effects. [employer] does not endorse or recommend the use of any drug.The information is not a substitute for medical care. AHFS?? Patient Medication Information???. ?? Copyright, 2023. [employer]??, [address], [address], [place], [place]. All Rights Reserved. Duplication for commercial use must be authorized by [facility]. Selected Revisions: April 28, 2023. AHFS?? Patient Medication Information???. ?? Copyright, 2024 ?? * Kristin King RN: PERFORM Event Display: Patient Education Leaflets Authored Date: [id number] Doxycycline ?? [id number] Doxycycline Brand Name(s): Acticlate??, Acticlate CAP??, Doryx??, Doryx MPC??, Doxychel??, Monodox??, Oracea??,Periostat??, Vibra-Tabs??, Vibramycin??; also available generically ?? WHY is this medicine prescribed? Doxycycline is used to treat a variety of infections caused by certain types of bacteria. Doxycycline is also used to treat or prevent anthrax (a serious infection that may be spread on purpose as part of a bioterror attack) in people who may have been exposed to anthrax in the air and to treat plague and tularemia (serious infections that may be spread on purpose as part of a bioterror attack). It is also used to prevent malaria. Doxycycline is also used along with other medications to treat acne and rosacea (a skin disease that causes redness, flushing, and pimples on the face). Doxycycline(Oracea) is used only to treat pimples and bumps caused by rosacea. Doxycycline is in a class of medications called tetracycline antibiotics. It works to treat infections by preventing the growth andspread of bacteria. It works to treat acne by killing the bacteria that infects pores and decreasing a certain natural oily substance that causes acne. It works to treat rosacea by decreasing the inflammation that causes this condition. Antibiotics such as doxycycline will not work for colds, flu, or other viral infections. Using antibiotics when they are not needed increases your risk of getting an infection later that resists antibiotic treatment. HOW should this medicine be used? Doxycycline comes as a capsule, tablet, delayed-release tablet, and suspension (liquid) to take by mouth. Doxycycline is usually taken once or twice a day. Drink a full glass of water with each dose.If your stomach becomes upset when you take doxycycline, you may take it with food or milk. Talk with your doctor or pharmacist about the best way to take doxycycline. Follow the directions on your prescription label carefully, and ask your doctor or pharmacist to explain any part you do not understand. Take doxycycline exactly as directed. Do not take more or less of it or take it more often than prescribed by your doctor. Swallow the delayed-release tablets whole; do not split, chew, or crush them. If you cannot swallow certain delayed-release tablets (Doryx; generics) whole, carefully break up the tablet and sprinkle the contents of the tablet on a spoonful of cold or room temperature (not hot) applesauce. Be careful not to crush or damage any of the pellets while you are breaking up the tablet. Eat the mixture right away and swallow without chewing. If the mixture cannot be eaten right away it should be discarded. Shake the suspension well before each use to mix the medication evenly. If you are taking doxycycline for the prevention of malaria, start taking it 1 or 2 days before traveling to an area where there is malaria. Continue taking doxycycline each day you are in the area, and for 4 weeks after leaving the area. You should not take doxycycline for the prevention of malaria for more than 4 months. Continue to take doxycycline even if you feel well. Take all the medication until you are finished,unless your doctor tells you otherwise. One doxycycline product may not be able to be substituted for another. Be sure that you receive only the type of doxycycline that was prescribed by your doctor. Ask your pharmacist if you have any questions about the type of doxycycline you were given. Are there OTHER USES for this medicine? Doxycycline may also be used for the treatment of malaria. It may also be used to treat Lyme disease or to prevent Lyme disease in certain people who have been bitten by a tick. It may also be used to prevent sexually transmitted infections (gonorrhea, chlamydia, syphilis) in certain circumstances . Talk to your doctor about the possible risks of using this medication for your condition. This medication is sometimes prescribed for other uses; ask your doctor or pharmacist for more information. What SPECIAL PRECAUTIONS should I follow? Before taking doxycycline, ??? tell your doctor and pharmacist if you are allergic to doxycycline, minocycline (Dynacin, Minocin, Solodyn, Ximino), tetracycline (Achromycin V, in Pylera), demeclocycline, any other medications,sulfites, or any of the ingredients in doxycycline capsules, tablets, extended-release tablets, or s uspension. Ask your pharmacist for a list of the ingredients. ??? System.Collections.Generic.List`1[System.Object] ??? the following nonprescription or herbal products may interact with doxycycline: bismuth, omeprazole (Prilosec), and lansoprazole (Prevacid). Be sure to let your doctor and pharmacist know that you are taking these medications before you start taking doxycycline. Do not start any of these medications while taking doxycycline without discussing with your healthcare provider. ??? be aware that antacids containing magnesium, aluminum, or calcium, calcium supplements, iron products, and laxatives containing magnesium interfere with doxycycline, making it less effective. Take doxycycline 1???2 hours before or 1???2 hours after taking antacids, calcium supplements, and laxativescontaining magnesium. Take doxycycline 2 hours before or 3 hours after iron preparations and vitamin products that contain iron. ??? tell your doctor if you have or have ever had lupus (condition in which the immune system attacks many tissues and organs including the skin, joints, blood, and kidneys), intracranial hypertension (pseudotumor cerebri; high pressure in the skull that may cause headaches, blurry or double vision, vision loss, and other symptoms), a yeast infection in your mouth or vagina, surgery on your stomach, asthma, or kidney or liver disease. Also, tell you doctor if you have diarrhea. ??? you should know that doxycycline may decrease the effectiveness of hormonal contraceptives ( control pills, patches, rings, or injections). Talk to your doctor about using another form of control. ??? tell your doctor if you are or plan to become . If youbecome while taking doxycycline, call your doctor immediately. Doxycycline can harm the fetus. ??? tell your doctor if you are . Your doctor may tell you not to breastfeed during your treatment with doxycycline. ??? plan to avoid unnecessary or prolonged exposure to sunlight and to wear protective clothing, sunglasses, and sunscreen. Doxycycline may make your skin sensitive to sunlight. Tell your doctor right away if you get a sunburn. ??? you should know that when you arereceiving doxycycline for prevention of malaria, you should also use protective measures such as effective insect repellent, mosquito nets, clothing covering the whole body, and staying in well-screened areas, especially from early nighttime until kranthi. Taking doxycycline does not give you full protection against malaria. ??? you should know that when doxycycline is used during or in babies or children up to 8 years of age, it can cause the teeth to become permanently stained and can cause problems with bone growth. Doxycycline should not be used in children under 8 years of age except for inhalational anthrax, [place] spotted fever, or if your doctor decides it is needed. What SPECIAL DIETARY instructions should I follow? Unless your doctor tells you otherwise, continue your normal diet. What should I do IF I FORGET to take a dose? Take the missed dose as soon as you remember it. However, if it is almost time for the next dose, skip the missed dose and continue your regular dosing schedule. Do not take a double dose to make up for a missed one. What SIDE EFFECTS can this medicine cause? Some side effects can be serious. If you experience any of these symptoms, call your doctor immediately: ??? headache ??? blurred vision, seeing double, or loss of vision ??? rash that may occur with fever or swollen glands ??? hives ??? skin redness, peeling or blistering ??? difficulty breathing or swallowing ??? swelling of the eyes, face, throat, tongue, or lips ??? unusual bleeding or bruising ??? watery or bloody stools, stomach cramps, or fever during treatment or for up to two or more monthsafter stopping treatment ??? a return of fever, sore throat, chills, or other signs of infection ??? joint pain ??? discoloration of permanent (adult) teeth Doxycycline may cause other side effects. Call your doctor if you have any unusual problems while taking this medication. If you experience a serious side effect, you or your doctor may send a report to the Food and Drug Administration's (FDA) MedWatch Adverse Event Reporting program online (https://www.fda.gov/Safety/MedWatch) or by phone ( ). What should I know about STORAGE and DISPOSAL of this medication? Keep this medication in the container it came in, tightly closed, and out of reach of children. Store it at room temperature and away from light and excess heat and moisture (not in the bathroom). It is important to keep all medication out of sight and reach of children as many containers (such as weekly pill minders and those for eye drops, creams, patches, and inhalers) are not child-resistant and young children can open them easily. To protect young children from poisoning, always lock safety caps and immediately place the medication in a safe location ??? one that is up and away and out of their sight and reach. https://www.LearnSomething[employer]Truckily.org Unneeded medications should be disposed of in special ways to ensure that pets, children, and otherpeople cannot consume them. However, you should not flush this medication down the toilet. Instead,the best way to dispose of your medication is through a medicine take-back program. Talk to your pharmacist or contact your local garbage/recycling department to learn about take-back programs in your community. See the FDA's Safe Disposal of Medicines website (https://goo.gl/c4Rm4p) for more information if you do not have access to a take-back program. What should I do in case of OVERDOSE? In case of overdose, call the poison control helpline at . Information is also available online at https://www.poisonhelp.org/help. If the victim has collapsed, had a seizure, has trouble breathing, or can't be awakened, immediately call emergency services at 971. What OTHER INFORMATION should I know? Keep all appointments with your doctor and laboratory. Your doctor will want to check your responseto doxycycline. Before having any laboratory test, tell your doctor and the laboratory personnel that you are taking doxycycline. Do not let anyone else take your medication. Your prescription is probably not refillable. If you still have symptoms of infection after you finish the doxycycline, call your doctor. It is important for you to keep a written list of all of the prescription and nonprescription (kqvr-akb-ebdtwmg) medicines you are taking, as well as any products such as vitamins, minerals, or otherdietary supplements. You should bring this list with you each time you visit a doctor or if you areadmitted to a hospital. It is also important information to carry with you in case of emergencies. This report on medications is for your information only, and is not considered individual patient advice. Because of the changing nature of drug information, please consult your physician or pharmacist about specific clinical use. [employer] represents that the information provided hereunder was formulated with a reasonable standard of care, and in conformity with professional standards in the field. [employer] makes no representations or warranties, express or implied, including, but not limited to, any implied warranty of merchantability and/or fitness for a particular purpose, with respect to such information and specifically disclaims all such warranties. Users are advised that decisions regarding drug therapy are complex medical decisions requiring the independent, informed decision of an appropriate health youth care worker, and the information is provided for informational purposes only. The entire monograph for a drug should be reviewed for a thorough understanding of the drug's actions, uses and side effects. [employer] does not endorse or recommend the use of any drug.The information is not a substitute for medical care. AHFS?? Patient Medication Information???. ?? Copyright, 2023. [employer]??, [address], [address], [place], [place]. All Rights Reserved. Duplication for commercial use must be authorized by [facility]. Selected Revisions: April 03, 2024. AHFS?? Patient Medication Information???. ?? Copyright, 2024 ?? * Kritsin King RN: PERFORM Event Display: Patient Education Leaflets Authored Date: [id number] Cefpodoxime ?? [id number] Cefpodoxime Brand Name(s): Banan??, Vantin??; also available generically ?? WHY is this medicine prescribed? Cefpodoxime is used to treat certain infections caused by bacteria such as bronchitis (infection ofthe airway tubes leading to the lungs); pneumonia; gonorrhea (a sexually transmitted disease); and infections of the skin, ear, sinuses, throat, tonsils, and urinary tract. Cefpodoxime is in a class of medications called cephalosporin antibiotics. It works by stopping the growth of bacteria. Antibiotics such as cefpodoxime will not work for colds, flu, or other viral infections. Using antibiotics when they are not needed increases your risk of getting an infection later that resists antibiotic treatment. HOW should this medicine be used? Cefpodoxime comes as a tablet and suspension (liquid) to take by mouth. It is usually taken every 12 hours for 5 to 14 days depending on the condition being treated. A single dose is given to treat gonorrhea. Take the tablet with food; the suspension can be taken with or without food. Take cefpodoxime at around the same times every day. Follow the directions on your prescription label carefully, and ask your doctor or pharmacist to explain any part you do not understand. Take cefpodoxime exactly as directed. Do not take more or less of it or take it more often than prescribed by your doctor. Shake the suspension well before each use to mix the medication evenly. You should begin to feel better during the first few days of treatment with cefpodoxime. If your symptoms do not improve or get worse, call your doctor. Continue to take cefpodoxime until you finish the prescription even if you feel better. If you stoptaking cefpodoxime too soon or skip doses, your infection may not be completely treated and the bacteria may become resistant to antibiotics.. Are there OTHER USES for this medicine? This medication may be prescribed for other uses; ask your doctor or pharmacist for more information. What SPECIAL PRECAUTIONS should I follow? Before taking cefpodoxime, ??? tell your doctor and pharmacist if you are allergic to cefpodoxime; any other cephalosporin antibiotic such as cefaclor, cefadroxil,cefazolin (Ancef, Kefzol), cefdinir, cefditoren (Spectracef), cefepime (Maxipime), cefixime (Suprax), cefotaxime (Claforan), cefotetan, cefoxitin (Mefoxin), cefprozil, ceftaroline (Teflaro), ceftazidime (Fortaz, Tazicef, in Avycaz), ceftibuten (Cedax), ceftriaxone (Rocephin), cefuroxime (Zinacef) and cephalexin (Keflex);penicillin antibiotics; or any other medications. Also tell your doctor if you are allergic to any of the ingredients in cefpodoxime tablets or suspension.Ask your pharmacist for a list of the ingredients. ??? tell your doctor and pharmacistwhat prescription and nonprescription medications, vitamins, nutritional supplements, and herbal products you are taking or plan to take while taking cefpodoxime. Your doctor may need to change the doses of your medications or monitor you carefully for side effects. ??? you should know that cefpodoxime may decrease the effectiveness of hormonal contraceptives ( control pills, patches, rings,and injections). You will need to use another method of contraception to prevent while taking cefpodoxime. Talk to your doctor about other ways to prevent while you are taking this medication. ??? tell your doctor if you have or have ever had gastrointestinal disease (GI; affecting the stomach or intestines), especially colitis (condition that causes swelling in the lining of the colon [large intestine]), or kidney disease. ??? tell your doctor if you are , plan to become , or are . If you become while taking cefpodoxime, call your doctor. ??? if you have phenylketonuria (PKU, an inherited condition in which a special diet must be followed to prevent damage to your brain that can cause severe intellectual disability), you should know that cefpodoxime suspension is sweetened with aspartame that forms phenylalanine. What SPECIAL DIETARY instructions should I follow? Unless your doctor tells you otherwise, continue your normal diet. What should I do IF I FORGET to take a dose? Take the missed dose as soon as you remember it. However, if it is almost time for the next dose, skip the missed dose and continue your regular dosing schedule. Do not take a double dose to make up for a missed one. What SIDE EFFECTS can this medicine cause? Some side effects can be serious. If you experience any of the following symptoms, call your doctorimmediately or get emergency medical treatment: ??? watery or bloody stools, stomach cramps, or fever during treatment or for up to two or more months after stopping treatment ??? rash ??? itching ??? hives ??? difficulty breathing or swallowing ??? wheezing ??? a return of fever, sore throat, chills, or other signs of infection If you experience a serious side effect, you or your doctor may send a report to the Food and Drug Administration's (FDA) MedWatch Adverse Event Reporting program online (https://www.fda.gov/Safety/MedWatch) or by phone ( ). What should I know about STORAGE and DISPOSAL of this medication? Keep this medication in the container it came in, tightly closed, and out of reach of children. Store the tablets at room temperature and away from light and excess heat and moisture (not in the bathroom). Keep liquid medicine in the refrigerator, tightly closed, and dispose of any unused medication after 14 days. Unneeded medications should be disposed of in special ways to ensure that pets, children, and otherpeople cannot consume them. However, you should not flush this medication down the toilet. Instead,the best way to dispose of your medication is through a medicine take-back program. Talk to your pharmacist or contact your local garbage/recycling department to learn about take-back programs in your community. See the FDA's Safe Disposal of Medicines website (https://goo.gl/c4Rm4p) for more information if you do not have access to a take-back program. It is important to keep all medication out of sight and reach of children as many containers (such as weekly pill minders and those for eye drops, creams, patches, and inhalers) are not child-resistant and young children can open them easily. To protect young children from poisoning, always lock safety caps and immediately place the medication in a safe location ??? one that is up and away and out of their sight and reach. https://www.LearnSomethingndaway.org What should I do in case of OVERDOSE? In case of overdose, call the poison control helpline at . Information is also available online at https://www.poisonhelp.org/help. If the victim has collapsed, had a seizure, has trouble breathing, or can't be awakened, immediately call emergency services at 911. Symptoms of overdose may include the following: ??? nausea ??? vomiting ??? diarrhea ??? stomach pain What OTHER INFORMATION should I know? Keep all appointments with your doctor and the laboratory. Your doctor may order certain lab tests to check your response to cefpodoxime. Before having any laboratory test, tell your doctor and the laboratory personnel that you are taking cefpodoxime. If you are diabetic and test your urine for sugar, use Clinistix or TesTape (not Clinitest) to testyour urine while taking this drug. Do not let anyone else take your medication. Your prescription is probably not refillable. . It is important for you to keep a written list of all of the prescription and nonprescription (nleo-zft-[id number]) medicines you are taking, as well as any products such as vitamins, minerals, or otherdietary supplements. You should bring this list with you each time you visit a doctor or if you areadmitted to a hospital. It is also important information to carry with you in case of emergencies. This report on medications is for your information only, and is not considered individual patient advice. Because of the changing nature of drug information, please consult your physician or pharmacist about specific clinical use. The [employer] [employer] represents that the information provided hereunder was formulated with a reasonable standard of care, and in conformity with professional standards in the field. The [employer] makes no representations or warranties, express or implied, including, but not limited to, any implied warranty of merchantability and/or fitness for a particular purpose, with respect to such information and specifically disclaims all such warranties. Users are advised that decisions regarding drug therapy are complex medical decisions requiring the independent, informed decision of an appropriate health youth care worker, and the information is provided for informational purposes only. The entire monograph for a drug should be reviewed for a thorough understanding of the drug's actions, uses and side effects. The [employer] does not endorse or recommend the use of any drug.The information is not a substitute for medical care. AHFS?? Patient Medication Information???. ?? Copyright, 2023. The [employer]??, [address], [address], [place], [place]. All Rights Reserved. Duplication for commercial use must be authorized by [facility]. Selected Revisions: July 29, 2021. AHFS?? Patient Medication Information???. ?? Copyright, 2024 ?? Patient Care team information Care Team Personnel Name: Mahogany Dunne CNM Position: Reference Physician Member Role: Primary Care Nurse Address: [address] [place] [id number] Telecom: Name: Britany Hurtado RN Position: S RN Member Role: Primary Care Nurse Name: Melissa Wooten RN Position: S RN Member Role: Primary Care Nurse Name: Maile Vega RN Position: [facility] AMB Nurse Member Role: Primary Care Nurse Name: Mary Ann Jules RN Position: S RN Member Role: Primary Care Nurse Name: Attila Law MD Position: Reference Physician Member Role: Primary Care Nurse Address: [address] [place] [address]- Telecom: Name: Madi Gray RN Position: S RN Member Role: Primary Care Nurse Name: Shira Berrios RN Position: [facility] ED RN W/OE and Tasks Member Role: Primary Care Nurse Name: Sary Gardner RN Position: S RN Member Role: Primary Care Nurse Name: Ai Carranza RN Position: S RN Member Role: Primary Care Nurse Name: Farooq Alvarado MD Position: Reference Physician Member Role: PCP Address: [address] [place] [address]- Telecom: Name: Jamee Felton RN Position: S RN Member Role: Primary Care Nurse Care Team Related Persons Name: ROSANNE SPIVEY Name: ADRIANE FREY Name: ISIDRO OWENS Insurance Providers Guarantor name: MIMI SPIVEY Health Plan Information #: 1 Payer: MEDICARE A INPT 25 Member Number: [id number] Policy Number: JANELLE Group Number: NA Health Plan Information #: 2 Payer: BLUE MEDICARE SUPPL Member Number: [id number] Policy Number: JANELLE Group Number: [id number] Health Plan Information #: 3 Payer: BLUE MEDICARE SUPPL Member Number: [id number] Policy Number: JANELLE Group Number: [id number]
--- OUTSIDE RECORDS SUMMARY | 2024-09-03 08:12 | XMS_ITS ---
Author Organization [address] Address [address] [place] [phone] Phone Care Team Providers Care Director Of Planning Name Role Phone Farooq Alvarado MD Primary Care Provider [phone] Transitional Care Management Status:Closed (Closed) Start date:08/31/2024 End date:09/01/2024 Close reason:Unable to reach patient Continued Care and Services Coordination
--- OUTSIDE RECORDS SUMMARY | 2024-09-03 08:12 | XMS_ITS | Clinical Summary ---
Author Organization [facility] Address [address] [place] [address] Care Team Providers Care Refrigeration Insulator Name Role Phone Farooq Alvarado MD Primary Care Provider [phone] Allergies Active Allergy Reactions Criticality Noted Date Comments Banana 10/24/2022 Medications Medication Sig Dispensed Refills Start Date End Date Status metFORMIN (GLUCOPHAGE) tablet 500 mg Take 2 tablets (1,000 mg total) by mouth 2 (two) times a day with meals. 0 Active DULoxetine (CYMBALTA) DR capsule 60 mg Take 1 capsule (60 mg total) by mouth daily. 0 Active insulin lispro (HumaLOG) injection 100 units/mL Inject 18 Units under the skin 3 (three) times a day before meals. 0 Active apixaban (ELIQUIS) 5 MG TABS tablet Take by mouth every 12 (twelve) hours. 0 Active Active Problems Problem Noted Date Diagnosed Date Polycythemia vera 11/07/2022 Family History Medical History Relation Name Comments Anemia Neg Hx Cancer Neg Hx Social History Tobacco Use Types Packs/Day Years Used Date Smoking Tobacco: Former Cigarettes Smokeless Tobacco: Never Tobacco Cessation:Counseling Given: Not Answered Alcohol Use Standard Drinks/Week Comments Not Currently 0 (1 standard drink = 0.6 oz pur e alcohol) Sex and Gender Information Value Date Recorded Sex Assigned at Not on file Gender Identity Not on file Sexual Orientation Not on file Job Start Date Occupation Industry Not on file Not on file Not on file Last Filed Vital Signs Vital Sign Reading Time Taken Comments Blood Pressure 124/69 09/27/2023 9:18 AM EDT Pulse 97 09/27/2023 9:18 AM EDT Temperature 35.9 ??C (96.7 ??F) 09/27/2023 9:18 AM ED T Respiratory Rate - - Oxygen Saturation 97% 09/27/2023 9:18 AM EDT Inhaled Oxygen Concentration - - Weight 118.4 kg (261 lb) 09/27/2023 9:18 AM EDT Height 180.3 cm (5' 11 ) 09/27/2023 9:18 AM EDT Body Mass Index 36.4 09/27/2023 9:18 AM EDT Plan of Treatment Health Maintenance Due Date Last Done Comments Hepatitis C Screening 1952 Depression Screening 1964 Preventative Health Evaluation 1970 Shingrix-Zoster Vaccine (1 o f 2) 1971 Colon Cancer Screening (Colonoscopy) 1997 Fall Risk Assessment 2017 Pneumococcal Vaccine (3 of 3 - PPSV23 or PCV20) 01/05/2019 03/12/2017, 01/05/2014 COVID-19 Vaccine (3 - 2023-2 5 season) 2024 07/04/2021, 10/21/2020 Influenza Vaccine (#1) 2024 9, 05/22/2019 RSV Adult > 60+ Yrs or (1 - 1-dose 75+ series) 2027 DTap / Tdap / Td (3 - Td or Tdap) 08/12/2028 08/12/2018, 12/25/2007 Hepatitis B Vaccines Aged Out No long er eligible based on patient's age to complete this topic RSV Ped < 20 months Aged Out No longe r eligible based on patient's age to complete this topic Care Teams Refrigeration Insulator Relationship Specialty Start Date End Date Farooq Alvarado MD PCP - General Internal Medicine 09/03/22
--- OUTSIDE RECORDS SUMMARY | 2024-09-03 08:12 | XMS_ITS | Encounter Summary ---
Author Organization [facility] Address [address] [place] [address] Care Team Providers Care Photographic Spotter Name Role Phone Farooq Alvarado MD Primary Care Provider [phone] Encounter Details Date Type Department Care Team (Late Contact Info) Description 09/02/2024 2:25 PM EST Ancillary Procedure [facility] Card[facility] [address] [facility] [address] [place] [phone] Arrived Social History Tobacco Use Types Packs/Day Years Used Date Smoking Tobacco: Former Cigarettes 1 38.7 0 07/15/1969 - 04/12/2008 Smokeless Tobacco: Never Alcohol Use Standard Drinks/Week Comments Yes 0 (1 standard drink = 0.6 oz pur e alcohol) Sex and Gender Information Value Date Recorded Sex Assigned at Not on file Legal Sex Male 6:24 PM EST Gender Identity Not on file Sexual Orientation Not on file documented as of this encounter Plan of Treatment Upcoming Encounters Date Type Department Care Team (Late Contact Info) Description 09/30/2024 10:30 AM EDT Ancillary Procedure [facility] [address] [facility] [address] [place] [address] 10/14/2024 9:00 AM EDT Office Visit Internal Medicine - [address] [phone] Farooq Alvarado MD [address] [place] [address] 02/09/2025 10:00 AM EDT Office Visit Endocrinology - [place] [address] [place] [address] Madelyn Bledsoe PA [address] [place] [address] 03/16/2025 9:30 AM EDT Ancillary Procedure [facility] [address] [facility] [address] [place] [phone] 06/16/2025 10:45 AM EST Office Visit [facility] Hematology Oncology [address] [place] [phone] Caren Judge MD [address] [place] [address] documented as of this encounter Procedures Procedure Name Priority Date/Time Associated Diagnosis Comments CARDIAC DEVICE CHECK- REMOTE- MURJ Routine 09/02/2024 2:23 PM EST documented in this encounter Results * Cardiac device check - Remote- MURJ (09/02/2024 2:23 PM EST) Date Time Interrogation Session [id number] CV DEVICE CHECK Type Interrogation Session Remote CV DEVICE CHECK Implantable Pulse Generator Grinder And Plater MDT CV DEVICE CHECK Implantable Pulse Generator Type QUARTZ CUTTER-D CV DEVICE CHECK Implantable Pulse Generator Model Claria MRI Quad CRTD [id number] CV DEVICE CHECK Implantable Pulse Generator Serial Number [id number] CV DEVICE CHECK Implantable Pulse Generator Implant Date [id number] CV DEVICE CHECK Battery Remaining Longevity 21.0 CV DEVICE CHECK Battery Voltage 2.920 CV D EVICE CHECK Battery DEBUBBLIZER Trigger 2.727 CV DEVICE CHECK Battery Status Middle of Service CV DEVICE CHECK Capacitor Charge Time 4.474 CV DEVICE CHECK Sj Statistic RA Percent Paced 0.76 CV DEVICE CHECK Sj Statistic RV Percent Paced 94.58 CV DEVICE CHECK QUARTZ CUTTER Statistic LV Percent Paced 94.52 CV DEVICE CHECK QUARTZ CUTTER Statistic QUARTZ CUTTER Percent Paced 94.52 CV DEVICE CHECK Atrial Tachy Statistic AT/AF [place] Percent 0.00 CV DEVICE CHECK Lead Channel Sensing Intrinsic Amplitude 1.250 CV DEVICE CHECK Lead Channel Setting Sensing Sensitivity 0.30 CV DEVICE CHECK Lead Channel Impedance Value 456 CV DEVICE CHECK Lead Channel Pacing Threshold Amplitude 0.500 CV DEVICE CHECK Lead Channel Pacing Threshold Pulse Width 0.4 CV DEVICE CHECK Lead Channel RA Pacing Threshold Date 2024-08-19 CV DEVICE CHECK Lead Channel Setting Pacing Amplitude 1.500 CV DEVICE CHECK Lead Channel Setting Pacing Pulse Width 0.4 CV DEVICE CHECK Lead Channel Sensing Intrinsic Amplitude 17.125 CV DEVICE CHECK Lead Channel Setting Sensing Sensitivity 0.30 CV DEVICE CHECK Lead Channel Impedance Value 380 CV DEVICE CHECK Lead Channel Pacing Threshold Amplitude 0.500 CV DEVICE CHECK Lead Channel Pacing Threshold Pulse Width 0.4 CV DEVICE CHECK Lead Channel RV Pacing Threshold Date 2024-08-20 CV DEVICE CHECK Lead Channel Setting Pacing Amplitude 2.000 CV DEVICE CHECK Lead Channel Setting Pacing Pulse Width 0.4 CV DEVICE CHECK Lead Channel Impedance Value 589 CV DEVICE CHECK Lead Channel Pacing Threshold Amplitude 2.000 CV DEVICE CHECK Lead Channel Pacing Threshold Pulse Width 0.4 CV DEVICE CHECK Lead Channel Pacing Threshold Date 2024-08-20 CV DEVICE CHECK Lead Channel Setting Pacing Amplitude 2.500 CV DEVICE CHECK Lead Channel Setting Pacing Pulse Width 0.4 CV DEVICE CHECK Sj Setting Mode (NBG Code) DDD CV DEVICE CHECK Ventricular chambers paced during QUARTZ CUTTER pacing. BiV CV DEVICE CHECK Sj Setting Lower Rate Limit 50 CV DEVICE CHECK Sj Setting AT Mode Switch Rate 171 CV DEVICE CHECK Sj Setting Maximum Tracking Rate 130 CV DEVICE CHECK Sj Setting Maximum Sensor Rate 120 CV DEVICE CHECK Sj Setting PAV Delay 130 CV DEVICE CHECK Sj Setting LIZETH Delay 100 CV DEVICE CHECK QUARTZ CUTTER LV-RV Delay 30 CV D EVICE CHECK Therapy Statistic Recent Shocks Delivered 0 CV DEVICE CHECK Therapy Statistic Recent Shocks Aborted 0 CV DEVICE CHECK Therapy Statistic Recent ATP Delivered 0 CV DEVICE CHECK RV HV Impedance 62 CV D EVICE CHECK Zone Setting Type Category AT/AF CV DEVICE CHECK Rate 171 CV DEVICE CHECK Therapies All Rx Off CV DEVICE CHECK Zone Setting Status Monitor CV DEVICE CHECK Zone ID 2 CV DEVICE CHECK Zone Setting Type Category VF CV DEVICE CHECK Rate 200 CV DEVICE CHECK Therapies ATP During Charging, 35Jx6 CV DEVICE CHECK Zone Setting Status On CV DEVICE CHECK Zone ID 3 CV DEVICE CHECK Zone Setting Type Category VT CV DEVICE CHECK Zone Setting Status Off CV DEVICE CHECK Zone ID 4 CV DEVICE CHECK Zone Setting Type Category VT CV DEVICE CHECK Zone Setting Status Off CV DEVICE CHECK Zone ID 5 CV DEVICE CHECK Zone Setting Type Category VT CV DEVICE CHECK Rate 140 CV DEVICE CHECK Rate 167 CV DEVICE CHECK Zone Setting Status ENABLED CV DEVICE CHECK Zone ID 6 CV DEVICE CHECK Date of Service 2024-09-26 CV DEVICE CHECK Anatomical Region Laterality Modality Device Interroga tion 08/20/2024 3:36 AM EST Impressions 09/02/2024 1:44 PM EST Heart Failure Diagnostic: Stable * Heart failure diagnostics assessed through the device * Status: Stable * No overt HF present Narrative Procedure Note George Palacio MD - 09/02/2024 IMPRESSION: Heart Failure Diagnostic: Stable * Heart failure diagnostics assessed through the device * Status: Stable * No overt HF present us George Palacio MD CV IMPLANTABLE CARDIAC DEVICE PROCEDURES Final Result documented in this encounter Visit Diagnoses Not on filedocumented in this encounter Care Teams Photographic Spotter Relationship Specialty Start Date End Date Farooq Alvarado MD [address] [place] [id number] PCP - General Internal Medicine 04/11/15 documented as of this encounter
--- OUTSIDE RECORDS SUMMARY | 2024-09-03 08:12 | XMS_ITS | Clinical Summary ---
Author Organization [address] Building Address [address] [place] [phone] Phone Care Team Providers Care Crm Technical Lead Name Role Phone Farooq Alvarado MD Primary Care Provider [phone] Allergies Active Allergy Reactions Criticality Noted Date Comments Banana Anaphylaxis High 10/24/2022 Medications DULoxetine (CYMBALTA) [address] capsule Take 1 capsule (60 mg total) by mouth daily. Active insulin lispro 100 unit/mL injection Inject 18 Units under the skin 3 (three) times a day before meals. Active metFORMIN (GLUCOPHAGE) 500 mg tablet Take 2 tablets (1,000 mg total) by mouth 2 (two) times a day with meals. Active atorvastatin (LIPITOR) 40 mg tablet Take 1 tablet (40 mg total) by mouth 1 (one) time each day. 4 Active insulin glargine,hum.re c.anlog (Basaglar KwikPen U-100 Insulin) 100 unit/mL (3 mL) injection pen Inject 50 Units under the skin at bedtime. 4 Active semaglutide (Ozempic) 1 mg/dose (4 mg/3 mL) injection pen Inject 1 mg under the skin 1 (one) time per week. 4 Active empagliflozin (Jardiance) 10 mg tablet Take 1 tablet (10 mg total) by mouth 1 (one) time each day. 4 Active clonazePAM (KlonoPIN) 0.5 mg tablet Take 1 tablet (0.5 mg total) by mouth. 9 Active flash glucose sensor (FreeStyle Robbie 2 Sensor) kit Change sensor every 14 days 2 each 11 4 Active spironolactone (ALDACTONE) 50 mg tablet TAKE 1 TABLET BY MOUTH DAILY 90 tablet 1 4 Active carvediloL (COREG) 25 mg tablet TAKE 1 TABLET BY MOUTH TWICE DAILY WITH MEALS 180 tablet 1 4 Active furosemide (LASIX) 40 mg tablet TAKE 1 TABLET BY MOUTH DAILY 90 tablet 1 4 Active pioglitazone (ACTOS) 30 mg tablet TAKE 1 TABLET BY MOUTH DAILY 90 tablet 1 4 Active blood-glucose sensor (FreeStyle Robbie 3 Sensor) device USE 1 SENSOR EVERY 14 DAYS 2 each 11 4 Active gabapentin (NEURONTIN) 100 mg capsule Take 1 capsule (100 mg total) by mouth 3 (three) times a day. 270 capsule 4 Active apixaban (ELIQUIS) 5 mg tablet Take 1 tablet (5 mg total) by mouth 2 (two) times a day. 180 tablet 1 5 Active sacubitriL-vals oxana (ENTRESTO) 49-51 mg per tablet Take 1 tablet by mouth 2 (two) times a day. 180 each 2 5 Active apixaban (Eliquis) 5 mg tablet Take 1 tablet (5 mg total) by mouth 2 (two) times a day. 4 08/11/19 25 Discontinu ed(Duplica te order) pioglitazone (ACTOS) 30 mg tablet Take 1 tablet (30 mg total) by mouth 1 (one) time each day. 9 08/11/19 25 Discontinu ed(Duplica te order) Active Problems Problem Noted Date Diagnosed Date Abnormal thyroid biopsy 02/11/2023 Polycythemia vera 11/07/2022 Carotid disease, bilateral 04/04/2018 Overview (04/24/2024): Neck [facility] November 2017 right carotid 65% left carotid 50% with moderate to severe stenosis of the right vertebral CHB (complete heart block) 04/04/2018 Overview (04/24/2024): 02/2018 medtronic MRI compatible dual chamber Bi - V PPM Aortic valve replaced 03/06/2018 S/P biventricular cardiac pacemaker procedure Carotid stenosis, asymptomatic, bilateral 2017 Blepharitis of upper and lower eyelids of both e yes 09/17/2017 Paving stone degeneration of both retinas 2017 Coronary artery disease 04/25/2016 Overview (04/24/2024): 02/2018 CABG GOODEN - lad, SVG OM1, RPDA AVR trifecta st bari 25 mm Calculus of gallbladder with out cholecystitis without obstruction 11/20/2015 Fatty liver 11/20/2015 Liver nodule 11/09/2015 Lung nodules 11/09/2015 Overview (04/24/2024): [facility] 10/28/15; rpt 1 year Thyroid nodule 11/09/2015 Overview (04/24/2024): CT chest 10/28 Microalbuminuria 10/11/2014 Type 2 diabetes mellitus with microalbuminuria 0 10/11/2014 Obstructive sleep apnea 08/11/2013 Overview (04/24/2024): severe by poly w AHI 51 Aortic root dilation 03/04/2013 PTSD (post-traumatic stress disorder) 12/03/2012 Cardiomyopathy 01/23/2011 Adjustment disorder with mixed anxiety and depre ssed mood 01/05/2011 ARMD (age related macular degeneration) 11/12/19 09 Chorioretinal scar 11/11/2008 Nuclear sclerosis 11/11/2008 Pure hyperglyceridemia 02/28/2007 Congestive heart failure 03/07/2006 Overview (04/24/2024): Sees cards [place] 11/21- echo Dilated left ventricle with left ventricular ejection fraction of 40 to 45%. Biatrial enlargement, left more than right. Left ventricular relaxation abnormality. Mild mitral regurgitation. No pericardial effusion. 12/23-A technically somewhat limited M-mode, 2D and color flow Doppler echocardiogram remarkable for mild left atrial alert, mild concentric left ventricular hypertrophy, trivial aortic stenosis, diastolic dysfunction and mildly impaired global left ventricular systolic function IMO [id number] update Anxiety state 01/11/2006 Edema 01/11/2006 Overview (04/24/2024): was ruled out for DVT.[facility] and tests were negative ECHO 12/18: CM ef of 40%----seeen by Dr Ray stress test:01/17: negative Allergic rhinitis 11/07/2005 Cramp of limb 11/07/2005 Essential hypertension, benign 11/07/2005 Overview (04/24/2024): plan to keep off verapamil as per dr ray.zestril had given him chest heaviness felodipine giving edema 12/20 dialated arotic root repeat in oneyear as per dr ray echo 02/18: The echocardiogram is remarkable for: Dilated left ventricle with wall motion abnormality as described above. Mild to moderate left ventricular systolic dysfunction with an ejection fraction of 40-45%. Moderate left atrial dilatation. Stage 2 diastolic dysfunction. No pericardial effusion. Mitral annular calcification, fibrocalcific aortic valve changes noted. As compared from December of 2005 there is further dilatation of the left ventricle with mild reduction in the left ventricular ejection fraction. Morbid obesity 11/07/2005 PVD (peripheral vascular disease) 11/07/2005 Overview (04/24/2024): bypass fem-pop on rt Encounters Date Type Department Care Team Description 09/02/2024 2:25 PM EST Ancillary Procedure [facility] [address] [facility] [address] [place] [id number] Arrived 08/11/2024 9:45 AM EST Office Visit Endocrinology - [address] [phone] Madelyn Bledsoe PA 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) (Primary Dx); Essential hypertension, benign; Morbid obesity (CMS/HCC); Microalbuminuria; Thyroid nodule 07/31/2024 9:00 AM EST Office Visit [facility] Hematology Oncology [address] [place] [phone] Caren Judge MD Polycythemia vera (CMS/HCC) (Primary Dx) 07/21/2024 11:25 AM EST Ancillary Procedure [facility] - [address] [place] [address] 06/25/2024 10:20 AM EST - 06/25/2024 11:59 PM EST Hospital Encounter [facility]trasound - [facility] [address] [place] [phone] Nontoxic single thyroid nodule Discharge Disposition: Home or Self Care from Last 3 Months Immunizations Name Administration Dates Next Due Influenza Quadravalent, MDCK , 0.5ml, preservative free (Flucelvax) 6mo and older 05/22/2019 BioVentrix/YUPIQ SARS-CoV-2 COVID -19, vector-nr, rS-Ad26, preservative free 07/04/2021,10/21/2020 PPD Test 05/12/2014 Pneumococcal conjugate 13 va lent (Prevnar 13, PCV13) 2mo and older 03/12/2017 Pneumococcal polysaccharide 23 valent (Pneumovax 23) 2yo and older 01/05/2014 Td Tetanus diptheria (Tdvax) 7yo and older 08/12 Tdap Tetanus diptheria acell ular pertussis (Boostrix; Adacel) 7yo and older 12/25/2007 Zoster Live 12/27/2015 Surgical History Surgery Date Site/Laterality Comments CORONARY ARTERY BYPASS GRAFT PROCEDURE:CORONARY ARTERY BYPASS GRAFT FEMORAL BYPASS PROCEDURE:FEMORAL BYPASS OTHER SURGICAL HISTORY left knee PROCEDURE: [place] UNLISTED PROCEDURE ARTHROSCOPY COLONOSCOPY 07/15/2012 PROCEDURE: HISTORICAL COLONOSCOPY; COMMENT: [facility]; normal CORONARY ARTERY BYPASS GRAFT PROCEDURE: HISTORICAL CABG; COMMENT: triple with valve OTHER SURGICAL HISTORY 2021 PROCEDURE: HISTORY OTHER; COMMENT: bypass graft lower legs OTHER SURGICAL HISTORY Left PROCEDURE: MN ARTHRODESIS GREAT TOE INTERPHALANGEAL JOINT; COMMENT: amputation ANGIOPLASTY PROCEDURE: HISTORICAL ANGIOPLASTY W/STENT Medical History Medical History Date Comments Hypertension DX:Hypertension Diabetes mellitus (CMS/HCC) DX:D iabetes mellitus (HCC) CHF (congestive heart failur e) (CMS/HCC) DX:CHF (congestive heart silvana lure) (HCC) PVD (peripheral vascular dis ease) (CMS/HCC) DX:PVD (peripheral vascular disease) (HCC) Anxiety DX:Anxiety Fatty liver DX:Fatty liver Hyperlipidemia DX:Hyperlipidemi a Carotid arterial disease (CMS/HCC) DX:Carotid arterial disease (HCC) CAD (coronary artery disease) DX :CAD (coronary artery disease) H/O aortic valve replacement DX: H/O aortic valve replacement Status post biventricular pacemaker DX:Status post biventricular pacemaker Lung nodule DX:Lung nodule Thyroid nodule DX:Thyroid nodul e Type II or unspecified type diabetes mellitus with unspecified complication, not stated as uncontrolled DX:Type II or unspecified ty pe diabetes mellitus with unspecified complication, not stated as uncontrolled Heart disease, unspecified DX:He art disease, unspecified Unspecified essential hypertension DX:Unspecified essential hypertension ARMD (age related macular degeneration) 11/11/08 DX:ARMD (age related macular degeneration) Thyroid nodule 11/09/2015 DX:Thyroid nodul e Family History Medical History Relation Name Comments Diabetes Brother Coronary artery disease Father Hyperlipidemia Father Hypertension Mother Stroke Mother Hypertension Sister Anemia Neg Hx Blindness Neg Hx Cancer Neg Hx Cataracts Neg Hx Glaucoma Neg Hx Macular degeneration Neg Hx Strabismus Neg Hx Relation Name Status Comments Brother Alive Father Mother Sister Alive Social History Tobacco Use Types Packs/Day Years [...] on file Sexual Orientation Not on file Obstetrics History Last Filed Vital Signs Vital Sign Reading [...] Mass Index 36.6 08/11/2024 9:48 AM EST Plan of Treatment Upcoming Encounters Date Type Department Care Team (Late st Contact Info) Description 09/30/2024 10:30 AM EDT Ancillary Procedure [facility] [address] [place] [address] 10/14/2024 9:00 AM EDT Office Visit Internal Medicine - [address] [phone] Farooq Alvarado MD [address] [place] [phone] 02/09/2025 10:00 AM EDT Office Visit Endocrinology - [address] [phone] Madelyn Bledsoe PA [address] [place] [phone] 03/16/2025 9:30 AM EDT Ancillary Procedure [facility] [address] [facility] [address] [place] [address] 06/16/2025 10:45 AM EST Office Visit [facility] Hematology Oncology [address] [place] [phone] Caren Judge MD [address] [place] [address] Health Maintenance Due Date Last Done Comments RSV Immunization Patients 60 + Years Old (1 - Risk 60-74 years 1-dose series) 2012 Zoster Vaccines (1 of 2) 02/21/2016 12/27/2015 Pneumococcal Vaccine: 50+ Years (3 of 3 - PPSV23, PCV20 or PCV21) 01/05/2019 03/12/2017, 01/05/2014 Abdominal Aortic Aneurysm (AAA) Screen 06/23/2022 Depression Screening 06/23/2022 Falls Risk Assessment 06/23/2022 Medicare Annual Wellness Visit 06/23/2022 Social Influencers of Health Screening 06/23/2022 COVID-19 Vaccine (3 - 2023-2 5 season) 2024 07/04/2021, 10/21/2020 Influenza Vaccine (#1) 2024 05/22/2019 Diabetes: Blood Sugar Contro l Test (HGBA1C) 02/08/2025 08/11/2024, 02/06/2024, 02/06/2024 Diabetes: Annual Retina Eye Exam 06/22/2025 06/22/2024 Diabetes: Annual Foot Exam 07/22/2025 07/22/2024 Diabetes: Annual GFR (Glomerular Filtration Rate) 07/31/2025 07/31/2024, 02/19/2024, 12/16/2023 Hypertension/CHF/CAD Annual BMP Blood Test 07/31/2025 07/31/2024, 02/19/2024, 12/16/2023 Diabetes: Annual Urine Albumin-Creatinine Ratio (uACR) 08/11/2025 08/11/2024 DTaP,Tdap,and Td Vaccines (3 - Td or Tdap) 08/12/2028 08/12/2018, 12/25/2007 Cholesterol Screening (Lipid Panel) 08/11/2029 08/11/2024, 12/16/2023, 12/16/2023 Colorectal Cancer Screening: Colonoscopy 11/12/2033 11/13/2023 Hepatitis C Screening Completed 04/04/2010 HIB Vaccines Aged Out No longer eligi ble based on patient's age to complete this topic HPV Vaccines Aged Out No longer eligi ble based on patient's age to complete this topic Hepatitis A Vaccines Aged Out No long er eligible based on patient's age to complete this topic Hepatitis B Vaccines Aged Out No long er eligible based on patient's age to complete this topic IPV Vaccines Aged Out No longer eligi ble based on patient's age to complete this topic MMR Vaccines Aged Out No longer eligi ble based on patient's age to complete this topic Meningococcal ACWY Vaccine Aged Out N o longer eligible based on patient's age to complete this topic Meningococcal B Vacine Aged Out No lo nger eligible based on patient's age to complete this topic RSV Immunization Patients Under 20 months Aged Out No longer eligible b ased on patient's age to complete this topic Varicella Vaccines Aged Out No longer eligible based on patient's age to complete this topic Medical Devices Implanted Type Area Embedded Systems Designer Device Identifier Shelf Expiration Date Model / Serial / Lot Medt-Card Claria Mri Quad Crtd [id number] Implanted:09/13 (Quantity not on file) Cardiac FRICTION WELDING MACHINE OPERATOR-D ICD [employer] - CARDIAC RHYTH-CRDM CLARIA MRI QUAD CRTD [id number] / [id number] / Procedures Procedure Name Priority Date/Time Associated Diagnosis Comments CARDIAC DEVICE CHECK- REMOTE- MURJ Routine 09/02/2024 2:23 PM EST HEMOGLOBIN A1C Routine 08/11/2024 10:53 AM EST 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) LIPID PANEL WITH REFLEX TO DIRECT LDL Routine 08/11/2024 10:53 AM EST 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) MICROALBUMIN CREATININE URINE RATIO Routine 08/11/2024 10:53 AM EST 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) CBC WITH AUTO DIFFERENTIAL Routine 07/31/2024 9:25 AM EST Polycythemia vera (CMS/HCC) COMPREHENSIVE METABOLIC PANEL Routine 07/31/2024 9:25 AM EST Polycythemia vera (CMS/HCC) CBC AND DIFFERENTIAL Routine 07/31/2024 9:25 AM EST Polycythemia vera (CMS/HCC) ..MISCELLANEOUS REFERENCE LAB TEST 07/31/2024 ..MISCELLANEOUS REFERENCE LAB TEST 07/31/2024 ..MISCELLANEOUS REFERENCE LAB TEST 07/31/2024 CARDIAC DEVICE CHECK- REMOTE- MURJ Routine 07/21/2024 11:21 AM EST US HEAD NECK SOFT TISSUE Routine 06/25/2024 11:13 AM EST Nontoxic single thyroid nodule COLONOSCOPY Routine 11/13/2023 HEPATITIS C SCREENING Routine 04/04/2010 from Last 3 Months or Most Recently Relevant to Health Maintenance Results * Cardiac device check - Remote- MURJ (09/02/2024 2:23 PM EST) Only the most recent of2 resultswithin the time period is included. Date Time Interrogation Session [id number] CV DEVICE CHECK Type Interrogation Session Remote CV DEVICE CHECK Implantable Pulse Generator Embedded Systems Designer MDT CV DEVICE CHECK Implantable Pulse Generator Type FRICTION WELDING MACHINE OPERATOR-D CV DEVICE CHECK Implantable Pulse Generator Model Claria MRI Quad CRTD [id number] CV DEVICE CHECK Implantable Pulse Generator Serial Number [id number] CV DEVICE CHECK Implantable Pulse Generator Implant Date [id number] CV DEVICE CHECK Battery Remaining Longevity 21.0 CV DEVICE CHECK Battery Voltage 2.920 CV D EVICE CHECK Battery [employer] Trigger 2.727 CV DEVICE CHECK Battery Status Middle of Service CV DEVICE CHECK Capacitor Charge Time 4.474 CV DEVICE CHECK Sj Statistic RA Percent Paced 0.76 CV DEVICE CHECK Sj Statistic RV Percent Paced 94.58 CV DEVICE CHECK FRICTION WELDING MACHINE OPERATOR Statistic LV Percent Paced 94.52 CV DEVICE CHECK FRICTION WELDING MACHINE OPERATOR Statistic FRICTION WELDING MACHINE OPERATOR Percent Paced 94.52 CV DEVICE CHECK Atrial Tachy Statistic AT/AF [place] Percent 0.00 CV DEVICE CHECK Lead Channel [...] CV DEVICE CHECK Ventricular chambers paced during FRICTION WELDING MACHINE OPERATOR pacing. BiV CV DEVICE CHECK Sj Setting Lower Rate Limit 50 CV DEVICE CHECK Sj Setting AT Mode Switch Rate 171 CV DEVICE CHECK Sj Setting Maximum Tracking Rate 130 CV DEVICE CHECK Sj Setting Maximum Sensor Rate 120 CV DEVICE CHECK Sj Setting PAV Delay 130 CV DEVICE CHECK Sj Setting LIZETH Delay 100 CV DEVICE CHECK FRICTION WELDING MACHINE OPERATOR LV-RV Delay 30 CV D EVICE CHECK [...] CV IMPLANTABLE CARDIAC DEVICE PROCEDURES Final Result * (ABNORMAL) Lipid panel with reflex to direct LDL (08/11/2024 10:53 AM EST) Cholesterol 95 0 - 200 mg/dL LAB CHEMISTRY METHOD 08/11/2024 4:14 PM [facility] Triglycerides 157(H) 0 - 150 mg/dL LAB CHEMISTRY METHOD 08/11/2024 4:14 PM [facility] HDL 36(L) >=40 mg/dL LAB CHEMISTRY METHOD 08/11/2024 4:14 PM [facility] LDL Calculated 28 0 - 100 mg/dL LAB CHEMISTRY METHOD 08/11/2024 4:14 PM [facility] VLDL Cholesterol Lenny 31.4 mg/dL LAB CHEMISTRY METHOD 08/11/2024 4:14 PM [facility] Non HDL Chol. (LDL+VLDL) 59 <145 mg/dL LAB CHEMISTRY METHOD 08/11/2024 4:14 PM [facility] Chol/HDL Ratio 2.6 0.0 - 4.4 LAB CHEMISTRY METHOD 08/11/2024 4:14 PM [facility] Blood Venous blood specimen / Unknown Venipuncture / Unknown 08/11/2024 10:53 AM EST 08/11/2024 10:53 AM EST us Madelyn GALLO LAB BLOOD ORDERABLES Final Result [facility] [address] [place] [address], * (ABNORMAL) Microalbumin creatinine urine ratio (08/11/2024 10:53 AM EST) Creatinine, Urine 25.0 mg/dL LAB CHEMISTRY METHOD 08/11/2024 1:22 PM [facility] Microalb, Ur 323.0(H) 0.0 - 29.0 mg/L LAB CHEMISTRY METHOD 08/11/2024 1:22 PM [facility] Microalb/Crea t Ratio 1,292(H) <30 mg/g creat LAB CHEMISTRY METHOD 08/11/2024 1:22 PM EST [facility] Urine Urine specimen from urethra / Unknown Non-blood Collection / Unknown 08/11/2024 10:53 AM EST 08/11/2024 10:53 AM EST Madelyn GALLO LAB URINE ORDERABLES Final Result Performing Organization Address [facility]/ZIP Co de Phone Number [facility] [address] [place] [address], [place] [phone] * Hemoglobin A1c (08/11/2024 10:53 AM EST) Hemoglobin A1C 6.2 <6.5 % LAB CHEMISTRY METHOD 08/11/2024 1:59 PM [facility] Mean Bld Glu Estim. 131 mg/dL LAB CHEMISTRY METHOD 08/11/2024 1:59 PM [facility] Blood Venous blood specimen / Unknown Venipuncture / Unknown 08/11/2024 10:53 AM EST 08/11/2024 10:53 AM EST Madelyn GALLO LAB BLOOD ORDERABLES Final Result Performing Organization Address City/[facility]/ZIP Co de Phone Number [facility] [address] [place] [address], [place] [phone] * (ABNORMAL) CBC auto differential (07/31/2024 9:25 AM EST) WBC 14.7(H) 4.8 - 10.8 K/mcL LAB HEMETOLOGY METHOD 07/31/2024 12:20 PM [facility] RBC 6.40(H) 4.50 - 5.50 M/mcL LAB HEMETOLOGY METHOD 07/31/2024 12:20 PM [facility] Hemoglobin 17.2 13.5 - 17.5 g/dL LAB HEMETOLOGY METHOD 07/31/2024 12:20 PM [facility] Hematocrit 54.8(H) 42.0 - 54.0 % LAB HEMETOLOGY METHOD 07/31/2024 12:20 PM [facility] MCV 85.4 79.0 - 98.0 FL LAB HEMETOLOGY METHOD 07/31/2024 12:20 PM [facility] MCH 26.8(L) 27.0 - 32.0 pcg LAB HEMETOLOGY METHOD 07/31/2024 12:20 PM [facility] MCHC 31.4(L) 32.0 - 37.0 g/dL LAB HEMETOLOGY METHOD 07/31/2024 12:20 PM [facility] RDW 17.2(H) 11.0 - 15.0 % LAB HEMETOLOGY METHOD 07/31/2024 12:20 PM [facility] Platelets 658(H) 130 - 400 K/mcL LAB HEMETOLOGY METHOD 07/31/2024 12:20 PM [facility] MPV 11.0 7.0 - 11.0 FL LAB HEMETOLOGY METHOD 07/31/2024 12:20 PM [facility] NRBC 0.0 <1.0 % LAB HEMETOLOGY METHOD 07/31/2024 12:20 PM [facility] NRBC Absolute 0.00 <0.10 K/mcL LAB HEMETOLOGY METHOD 07/31/2024 12:20 PM [facility] Neutrophils Relative 76.7 % LAB HEMETOLOGY METHOD 07/31/2024 12:20 PM [facility] Lymphocytes Relative 9.4 % LAB HEMETOLOGY METHOD 07/31/2024 12:20 PM [facility] Monocytes Relative 8.2 % LAB HEMETOLOGY METHOD 07/31/2024 12:20 PM [facility] Eosinophils Relative 3.3 % LAB HEMETOLOGY METHOD 07/31/2024 12:20 PM EST [facility] Basophils Relative 1.3 % LAB HEMETOLOGY METHOD 07/31/2024 12:20 PM EST [facility] Immature Granulocytes Relative 1.1 % LAB HEMETOLOGY METHOD 07/31/2024 12:20 PM [facility] Neutrophils Absolute 11.24(H) 1.50 - 7.00 K/mcL LAB HEMETOLOGY METHOD 07/31/2024 12:20 PM [facility] Lymphocytes Absolute 1.37 1.00 - 5.00 K/mcL LAB HEMETOLOGY METHOD 07/31/2024 12:20 PM [facility] Monocytes Absolute 1.20(H) 0.20 - 1.00 K/mcL LAB HEMETOLOGY METHOD 07/31/2024 12:20 PM [facility] Eosinophils Absolute 0.49 0.00 - 0.50 K/mcL LAB HEMETOLOGY METHOD 07/31/2024 12:20 PM [facility] Basophils Absolute 0.19 0.00 - 0.20 K/mcL LAB HEMETOLOGY METHOD 07/31/2024 12:20 PM [facility] Immature Granulocytes Absolute 0.16(H) 0.00 - 0.03 K/mcL LAB HEMETOLOGY METHOD 07/31/2024 12:20 PM [facility] Blood Venous blood specimen / Unknown Venipuncture / Unknown 07/31/2024 9:25 AM EST 07/31/2024 11:12 AM EST us Caren Judge MD LAB BLOOD ORDERABLES Final R esult [facility] [address] [place] [address], * (ABNORMAL) Comprehensive metabolic panel (07/31/2024 9:25 AM EST) Sodium 136 133 - 145 mmol/L LAB CHEMISTRY METHOD 07/31/2024 11:55 AM [facility] Potassium 5.1 3.5 - 5.5 mmol/L LAB CHEMISTRY METHOD 07/31/2024 11:55 AM [facility] Chloride 102 96 - 110 mmol/L LAB CHEMISTRY METHOD 07/31/2024 11:55 AM [facility] CO2 28 21 - 32 mmol/L LAB CHEMISTRY METHOD 07/31/2024 11:55 AM [facility] Anion Gap 6 3 - 11 LAB CHEMISTRY METHOD 07/31/2024 11:55 AM [facility] Glucose 149(H) 70 - 100 mg/dL LAB CHEMISTRY METHOD 07/31/2024 11:55 AM [facility] BUN 36(H) 5 - 25 mg/dL LAB CHEMISTRY METHOD 07/31/2024 11:55 AM [facility] Creatinine 1.04 0.70 - 1.30 mg/dL LAB CHEMISTRY METHOD 07/31/2024 11:55 AM [facility] eGFR 76 >=60 mL/min/1. 73m2 LAB CHEMISTRY METHOD 07/31/2024 11:55 AM [facility] Comment:Calculation based on the??Chronic Kidney Disease Epidemiology Collaboration (CKD-EPI) equation refit??without adjustment for race. BUN/Creatinine Ratio 34.6 LAB CHEMISTRY METHOD 07/31/2024 11:55 AM [facility] Calcium 9.5 8.5 - 10.5 mg/dL LAB CHEMISTRY METHOD 07/31/2024 11:55 AM [facility] AST (SGOT) 21 10 - 42 unit/L LAB CHEMISTRY METHOD 07/31/2024 11:55 AM [facility] ALT (SGPT) 26 10 - 60 unit/L LAB CHEMISTRY METHOD 07/31/2024 11:55 AM [facility] Alkaline Phosphatase 72 42 - 121 unit/L LAB CHEMISTRY METHOD 07/31/2024 11:55 AM EST [facility] Total Protein 7.2 6.0 - 8.0 g/dL LAB CHEMISTRY METHOD 07/31/2024 11:55 AM EST [facility] Albumin 4.1 3.2 - 5.0 g/dL LAB CHEMISTRY METHOD 07/31/2024 11:55 AM EST [facility] Total Bilirubin 0.5 0.0 - 1.4 mg/dL LAB CHEMISTRY METHOD 07/31/2024 11:55 AM EST [facility] Blood Venous blood specimen / Unknown Venipuncture / Unknown 07/31/2024 9:25 AM EST 07/31/2024 11:13 AM EST Caren Judge MD LAB BLOOD ORDERABLES Final R esult [facility] [address] [place] [address], * Miscellaneous reference lab test (07/31/2024) Only the most recent of3 resultswithin the time period is included. us Provider Onbase LAB BLOOD ORDERABLES Final Re sult * US Head Neck Soft Tissue (06/25/2024 11:13 AM EST) Anatomical Region Laterality Modality Head and Neck Ultrasound 06/25/2024 11:2 7 AM EST Impressions 06/25/2024 11:35 AM EST Previously identified nodules are stable. ??New small right mid lobe nodule. ??Continued sonographic follow-up is recommended. -------- FINAL REPORT -------- Dictated By: Jersey Reyes Dictated Date: 06/25/2024 11:27 ET Assigned Physician: Jersey Reyes Reviewed and Electronically Signed By: Jersey Reyes Signed Date: 06/25/2024 11:35 ET Workstation ID: [id number] Transcribed By: Self Edit Transcribed Date: 06/25/2024 11:27 ET Narrative 06/25/2024 11:35 AM EST History: Thyroid nodules. ??Follow-up. Thyroid ultrasound: Compared to 12/26/2023. ??The thyroid remains diffusely somewhat heterogeneous. ??The left lobe of thyroid remains substantially enlarged measuring 7.4 x 3.7 x 4.7 cm. ??The right lobe remains at the upper limit of normal measuring 4.7 x 1.7 x 2.3 cm. ??There is a hypoechoic nodule in the left aspect of the isthmus measuring 9 x 9 x 9 mm, not significantly changed. ??There is a poorly defined right mid lobe nodule measuring 12 x 11 x 10 mm not seen previously. ??A right lower pole nodule seen previously is no longer visualized. ??A left upper pole predominantly cystic nodule measures 12 x 11 x 9 mm, not significantly changed. ??There is a dominant nodule at the left mid to lower pole with cystic and solid components measuring 6.0 x 3.7 x 4.6 cm. ??Previous dimensions were 5.5 x 3.6 x 4.9 cm. ??This does not represent a significant interval change. ??No additional nodules or masses are demonstrated. Procedure Note Jersey Reyes MD - 06/25/2024 History: Thyroid nodules. Follow-up. Thyroid ultrasound: Compared to 12/26/2023. The thyroid remains diffuselysomewhat heterogeneous. The left lobe of thyroid remains substantiallyenlarged measuring 7.4 x 3.7 x 4.7 cm. The right lobe remains at theupper limit of normal measuring 4.7 x 1.7 x 2.3 cm. There is a hypoechoicnodule in the left aspect of the isthmus measuring 9 x 9 x 9 mm, notsignificantly changed. There is a poorly defined right mid lobe nodulemeasuring 12 x 11 x 10 mm not seen previously. A right lower pole noduleseen previously is no longer visualized. A left upper pole predominantlycystic nodule measures 12 x 11 x 9 mm, not significantly changed. Thereis a dominant nodule at the left mid to lower pole with cystic and solidcomponents measuring 6.0 x 3.7 x 4.6 cm. Previous dimensions were 5.5 x3.6 x 4.9 cm. This does not represent a significant interval change. Noadditional nodules or masses are demonstrated. IMPRESSION: Previously identified nodules are stable. New small right mid lobenodule. Continued sonographic follow-up is recommended. -------- FINAL REPORT -------- Dictated By: Jersey Reyes Dictated Date: 06/25/2024 11:27 ET Assigned Physician: Jersey Reyes Reviewed and Electronically Signed By: Jersey Reyes Signed Date: 06/25/2024 11:35 ET Workstation ID: [id number] Transcribed By: Self Edit Transcribed Date: 06/25/2024 11:27 ET Madelyn GALLO IMG US PROCEDURES Final Res ult * Colonoscopy (11/13/2023) Colonoscopy completed Anatomical Region Laterality Modality Other Historical Provider HEALTH MAINTENANCE Final Result * Hepatitis C Screening (04/04/2010) Hepatitis C Screening negative Historical Provider HEALTH MAINTENANCE Final Result from Last 3 Months or Most Recently Relevant to Health Maintenance Insurance MEDICARE [facility] Care Teams Crm Technical Lead Relationship Specialty Start Date End Date Farooq Alvarado MD [address] [place] [address] PCP - General Internal Medicine 04/11/15
== END 2024-09-03 08:07 | disposition home or self-care (01) ==
LOC: HO.BBR 08:06
PROVIDERS: PCP Internal Medicine; Visit Provider Internal Medicine
DX: D45 Polycythemia vera (principal)
CPT/HCPCS: 85014; 85018; 99195

== ENCOUNTER 2024-12-03 13:49 | Outpatient (REF) | payer MEDICARE, BC, SELFPAY ==
--- OUTSIDE RECORDS SUMMARY | 2024-12-03 13:58 | XMS_ITS | Clinical Summary ---
Author Organization [facility] Address [address] [place] [address] Care Team Providers Care Associate Professor Of Geology Name Role Phone Farooq Alvarado MD Primary Care Provider [phone] Allergies Active Allergy Reactions Criticality Noted Date [...] age to complete this topic Care Teams Associate Professor Of Geology Relationship Specialty Start Date End Date Farooq Alvarado MD PCP - General Internal Medicine 09/03/22
== END 2024-12-03 13:50 | disposition home or self-care (01) ==
LOC: HO.BBR 13:49
PROVIDERS: PCP Internal Medicine; Visit Provider Internal Medicine
DX: D45 Polycythemia vera (principal)
CPT/HCPCS: 85014; 85018; 99195

== ENCOUNTER 2025-03-05 07:58 | Outpatient (REF) | payer MEDICARE, BC, SELFPAY ==
--- OUTSIDE RECORDS SUMMARY | 2025-03-01 23:59 | XMS_ITS | Continuity of Care Document ---
Author Organization [facility] Address [address] [place] [id number]- Care Team Providers Care Purchasing Buyer Name Role Phone Christiano LUIS, Farooq Cortes Primary Care Physician Encounter [facility] Date(s): 02/22/25 - 03/01/25 [facility] [address] [place] [id number] Attending Physician: Malena Tian NP Admitting Physician: Malena Tian NP Referring Physician: Farooq Alvarado MD Encounter Type: Office Visit Allergies, Adverse Reactions, Alerts No Known Medication [...] wheezing, # 8.5 Gm, 0 Refills, Maintenance, 08/28/24 9:48:00 AM EST, Aerosol, [facility] #[id number], Partial fill upon patient request if the [...] Refills, Maintenance, 08/28/24 9:45:00 AM EST, Tablet, [facility] #[id number], Partial fill upon patient request if the [...] 9:18:00 AM EDT, Route to Pharmacy Electronically, [facility]/pharmacy #[id number], Partial fill upon patient requestif the prescription [...] Date: 07/13/24 Status: Ordered Repeat number: 1 clonazePAM 0.5 mg oral [...] Date: 12/04/21 Status: Ordered Repeat number: 1 Entresto 49 mg-51 mg [...] 9:45:00 AM EST, Route to Pharmacy Electronically, [id number], Partial fill upon patient request if the [...] times a day before meals, sliding scale [id number]: 2 units, 200-249; 4 unints, 250-299; 6 [...] Ordered Repeat number: 1 Lantus Inj = 90 units, Subcutaneous Injection, Daily at bedtime, 0 [...] 01/12/2019) Confirmed Active Biventricular Medtronic Solara Quad SUPERVISOR SIGN SHOP-P MRI SureScan model [id number] Confirmed 02/21/18 Active [...] Moderate Kyphoscoliosis Confirmed Active Neuropathy Confirmed Active Obese class I Confirmed Active YAKELIN (obstructive sleep apnea) Confirmed Active Osteomyelitis Confirmed Active PAD (peripheral artery disease) Confirmed Active PVD (peripheral vascular disease) Confirmed Active PTSD (post-traumatic stress disorder) Confirmed Active DM2 (diabetes mellitus, type 2), insulin Confirmed Active Noncompliance with CPAP treatment Confirmed Active Social History Social History Type Response Smoking Status Former smoker; Tobac co user in household: No; Other: 2ppd x 30y; quit 2003; 1 entered on: 03/07/16 Sex Sex Representation Male (finding) 1quit 8 yrs ago Note * Kina Carolina: PERFORM Event Display: Patient Education/Instruction Authored Date: [id number] Ambulatory Adult Visit Summary [facility] [address] [facility] [address] [place] [id number] Name: MIMI SPIVEY : 1950?? Visit: 02/22/2025 10:53?? Ambulatory Visit Instructions ?? Your Care Team Primary Care Provider Christiano LUIS, Farooq Cortes? This Visit Provider Malena Tian NP Vitals Signs Pulse Rate: 64 bpm Height: 180 cm Systolic Blood Pressure: 100 mm Hg Weight: 109.09 kg Diastolic Blood Pressure: 64 mm Hg Body Mass Index:??33.67 kg/m2??Critical Oxygen Saturation: 94 % Body surface area: 2.34 What to do next Scheduled Follow-Up Appointments Saturday 2:00 PM EDT ?? Where: [facility] [address] [place] [address]- Status: Pending Saturday 2:30 PM EDT ?? Where: [facility] [address] [place] [address]- Status: Pending Saturday 3:00 PM EDT ?? Where: [facility] [address] [place] [address]- Status: Pending Saturday 1:30 PM EDT ?? With: Malena Tian NP Where: [address] [place] [address]- Status: Pending Medications The list below reflects the information in our records and provided by you today along with any changes made during this visit. Please continue your medications until treatment is completed or stopped by your provider. If this is different from the information you have or there are other questions,please contact the prescribing provider. What How Much When Instructions Unchanged Acetaminophen (Tylenol 325 mg oral tablet) 650 Milligram Oral Every 6 hours as needed for Pain , Moderate Unchanged Albuterol (Albuterol (Eqv-ProAir HFA) 90 mcg/ inh inhalation aerosol) 1 inhalation Inhalation Every 4 hours as needed for as needed for shortness of breath or wheezing Duration: 30 Days Unchanged apixaban (apixaban 5 mg oral tablet) 1 tab(s) Oral Twice a day Duration: 30 Days Unchanged Aspirin (aspirin 81 mg oral delayed release tablet) 1 tab(s) Oral Daily Unchanged Atorvastatin (atorvastatin 40 mg oral tablet) 1 tab(s) Oral Daily at Bedtime Unchanged Carvedilol (carvedilol 25 mg oral tablet) 1 tab(s) Oral Twice a day 180 each, 0 Refill(s), TAKE 1 TABLET BY MOUTH TWICE DAILY WITH MEALS ?? Unchanged Clonazepam (clonazePAM 0.5 mg oral tablet) 1 tab(s) Oral 3 times a day as needed for Anxiety 0.25 mg during the day and 0.5 mg at bedtime, (total 0.5 tid) ?? Unchanged Duloxetine (Cymbalta 30 mg oral enteric coated capsule) 1 capsule Oral Daily in the morning do not crush or chew ?? Unchanged empagliflozin (Jardiance 10 mg oral tablet) 1 tab(s) Oral Daily in the morning Unchanged fenofibric acid (Trilipix 135 mg oral delayed release capsule) 1 capsule Oral Daily in the morning Unchanged Furosemide (furosemide 40 mg oral tablet) 1 tab(s) Oral Daily in the morning Unchanged Gabapentin (gabapentin 100 mg oral capsule) 1 capsule Oral 3 times a day 270 each, 0 Refill(s) ?? Unchanged Insulin Glargine (Lantus Inj) 90 unit(s) Subcutaneous Injection Daily at Bedtime Unchanged Insulin Lispro 2-10 units Subcutaneous Injection 3 times a day before meals sliding scale [id number]: 2 units, 200-249; 4 unints, 250-299; 6 units, 300-349: 8 units, 350- 399: 10 units, callMD if more than 400. ?? Unchanged Metformin (metFORMIN 500 mg oral tablet, extended release) 2 tab(s) Oral Twice a day Unchanged Pioglitazone (pioglitazone 30 mg oral tablet) 1 tab(s) Oral Daily at Bedtime Unchanged sacubitril-valsartan (Entresto 49 mg-51 mg oral tablet) 1 tab(s) Oral Twice a day Unchanged semaglutide (Ozempic (1 mg dose) 4 mg/ 3 mL subcutaneous solution) 1 Milligram Subcutaneous Injection Every week 3 mL, 0 Refill(s), INJECT 1MG SUBCUTANEOUSLY ??EVERY 7 DAYS ?? Unchanged Spironolactone (spironolactone 50 mg oral tablet) 1 tab(s) Oral Daily in the morning Medications and Immunizations Administered Medications Given During Visit No medications given during this visit.?? Allergies (NKA means No Known Allergies) Bananas??(Hives) No Known Medication Allergies Common Emergency Awareness Tips IS IT A STROKE? Act FAST and Check for these signs: FACE Does the face look uneven? ARM Does one arm drift down? SPEECH Does their speech sound strange? TIME Call at any sign of stroke ?? Heart [...] are strongly encouraged to quit. Please call [facility] at [phone] or [phone] ([phone]) or log in to [email or web address] for referrals to smoking cessation programs. ?? The National Suicide Prevention Hotline is available 04/02 if you or someone you know needs to find a reason to keep living. By calling 6-521-930-[place] (0910) you'll be connected to a skilled, trained counselor at a crisis center in your area. [facility] You can view and manage your care through the patient portal or by using a health care justin of your choosing. [employer] is a website that allows you to securely view your medical information including your hospital discharge summary, office visit summaries, medications and follow-up visits. You can also request appointments, renew medications, and request access to your medical information using a health care justin of your choosing, or just ask a question. You can enroll at [email or web address] or register during your next office visit. [facility], in keeping with [facility] guidance, no [...] medical provider or home test kit. ?? Disclaimer: The information provided is of a general nature and is intended to be used in conjunction with the recommendations and advice of your health care practitioner. Every effort has been made to ensure that the information provided is accurate and complete at the time it is provided to you however, as your needs change, or, as new information becomes available, different or additional instructions may be required. ?? If you have questions, please consult with your primary care provider or pharmacist, as appropriate. This information is not intended to serve as substitution for assessment and evaluation by a qualified health care provider. If you do not have a primary care provider, you may find a [facility] provider by calling [facility] at [phone]. Patient Care team information Care Team Personnel Name: Mahogany Dunne CNM Position: Reference Physician Member Role: Primary Care Nurse Address: [address] [place], [place] [id number]- Telecom: Name: Britany Hurtado RN Position: [facility] RN Member Role: Primary Care Nurse Name: Melissa Wooten RN Position: [facility] RN Member Role: Primary Care Nurse Name: Maile Vega RN Position: [facility] AMB Nurse Member Role: Primary Care Nurse Name: Mary Ann Jules RN Position: [facility] RN Member Role: Primary Care Nurse Name: Attila Law MD Position: Reference Physician Member Role: Primary Care Nurse Address: [address] [place] [address]- Telecom: Name: Madi Gray RN Position: [facility] RN Member Role: Primary Care Nurse Name: Shira Berrios RN Position: [facility] KENNEDI RN W/OE and Tasks Member Role: Primary Care Nurse Name: Sary Gardner RN Position: S RN Member Role: Primary Care Nurse Name: Ai Carranza RN Position: [facility] RN Member Role: Primary Care Nurse Name: Farooq Alvarado MD Position: Reference Physician Member Role: PCP Telecom: Name: Jamee Felton RN Position: S RN Member Role: Primary Care Nurse Care Team Related Persons Name: ROSANNE SPIVEY Name: ADRIANE REZA Name: ISIDRO OWENS Insurance Providers Guarantor name: MIMI SPIVEY Health Plan Information #: 1 Payer: MEDICARE B Payer Identifier: Member Number: [id number] Group Number: [id number] Subscriber Identifier: [id number] Relationship to Subscriber: self Coverage Type: NA Coverage Verification Date: NA Telecom: NA Address: [facility] Information #: 2 Payer: [facility] Payer Identifier: Member Number: [id number] Group Number: [id number] Subscriber Identifier: [id number] Relationship to Subscriber: self Coverage Type: Medicare Other Coverage Verification Date: NA Telecom: NA Address: NA
--- OUTSIDE RECORDS SUMMARY | 2025-03-05 08:01 | XMS_ITS ---
Author Name [facility] Organization Unknown Care Team Organization Name Specialty Phone Email Start Date End Da te [facility] 03/03/2025 [facility] Farooq Alvarado Primary Care 05/22/2022 03/02/20 24
--- OUTSIDE RECORDS SUMMARY | 2025-03-05 08:01 | XMS_ITS | Clinical Summary ---
Author Organization [facility] Address [address] [place] [address] Care Team Providers Care Information Tech Name Role Phone Farooq Alvarado MD Primary Care Provider [phone] Allergies Active Allergy Reactions Criticality Noted Date [...] 97 09/27/2023 9:18 AM EDT Temperature 35.9 C (96.7 F) 09/27/2023 9:18 AM EDT Respiratory Rate - - Oxygen Saturation 97% [...] season) 2024 07/04/2021, 10/21/2020 Influenza Vaccine (#1) 2025 9, 05/22/2019 RSV Adult > 60+ Yrs [...] age to complete this topic Care Teams Information Tech Relationship Specialty Start Date End Date Farooq Alvarado MD PCP - General Internal Medicine 09/03/22
== END 2025-03-05 07:59 | disposition home or self-care (01) ==
LOC: HO.BBR 07:58
PROVIDERS: PCP Internal Medicine; Visit Provider Internal Medicine
DX: D45 Polycythemia vera (principal)
CPT/HCPCS: 85018; 99195

== ENCOUNTER 2025-06-03 08:03 | Outpatient (REF) | payer MEDICARE, BC, SELFPAY ==
--- OUTSIDE RECORDS SUMMARY | 2025-06-03 08:19 | XMS_ITS | Clinical Summary ---
Author Organization [facility] Address [address] [place] [address] Care Team Providers Care Nutrition Club Ambassador Name Role Phone Farooq Alvarado MD Primary Care Provider [phone] Allergies Active Allergy Reactions Criticality Noted Date [...] 01/05/2019 03/12/2017, 01/05/2014 COVID-19 Vaccine (3 - 2024-2 6 season) 2025 07/04/2021, 10/21/2020 Influenza Vaccine (#1) 2025 9, [...] age to complete this topic Care Teams Nutrition Club Ambassador Relationship Specialty Start Date End Date Farooq Alvarado MD PCP - General Internal Medicine 09/03/22
== END 2025-06-03 08:04 | disposition home or self-care (01) ==
LOC: HO.BBR 08:03
PROVIDERS: PCP Internal Medicine; Visit Provider Internal Medicine
DX: D45 Polycythemia vera (principal)
CPT/HCPCS: 85018; 99195